=== PATIENT | female | born 1935 | race Caucasian/White ===

== ENCOUNTER 2020-04-03 18:04 | Emergency (ER) | payer MEDICARE, SELFPAY ==
--- NOTE | 2020-04-03 | ECG_ITS ---
Test Reason : HYPOKALEMIA Blood Pressure : / mmHG Vent. Rate : 086 BPM Atrial Rate : 101 BPM P-R Int : 000 ms QRS Dur : 080 ms QT Int : 390 ms P-R-T Axes : 000 016 -85 degrees QTc Int : 466 ms Atrial fibrillation with premature ventricular or aberrantly conducted complexes Nonspecific ST and T wave abnormality Abnormal ECG When compared with ECG of 03-AUG-2018 10:09, No significant changes seen Referred By: Generic ED Physician Electronically Signed By:NOEL APONTE
[2020-04-03 18:08] VITALS: BP 125/91; PULSE 77; RESP 16; TEMP 36.1; O2SAT 98; BMI 18.0
[2020-04-03 21:00] LABS: Basophils Absolute Auto 0.1 X10*3/uL (0.0-0.2); Basophils Percent Auto 0.9 % (0-2); Eosinophils Absolute Auto 0.3 X10*3/uL (0.0-0.4); Eosinophils Percent Auto 3.3 % (0-4); Hematocrit 36.9 % (37-47); Hemoglobin 12.2 g/dl (12.0-16.0); Imm Gran Abs Auto 0.02 X10*3/uL (0.00-0.03); Imm Gran Pct Auto 0.2 % (0.0-0.4); Lymphocytes Absolute Auto 2.7 X10*3/uL (1.2-4.9); Lymphocytes Percent Auto 29.2 % (20-40); MANUAL DIFF FLAG NO; Mean Corpuscular HGB Conc 33.1 g/dl (31.0-35.0); Mean Corpuscular Hemoglobin 29.2 pg (27.0-33.0); Mean Corpuscular Volume 88.3 fL (80-98); Mean Platelet Volume 8.8 fL (9.4-12.3); Monocytes Absolute Auto 0.9 X10*3/uL (0.1-1.2); Monocytes Percent Auto 9.4 % (2-11); Neutrophils Absolute Auto 5.4 X10*3/uL (2.0-8.3); Platelet Count 245 X10*3/uL (160-400); Red Blood Count 4.18 X10*6/uL (4.20-5.50); Red Cell Distribution Width 15.3 % (11.0-16.0); White Blood Count 9.4 X10*3/uL (4.8-10.8)
[2020-04-03 21:20] LABS: Anion Gap 15 (12-20); Blood Urea Nitrogen 17 mg/dL (9-16); Calcium 9.2 mg/dL (8.4-10.2); Carbon Dioxide 30 mmol/L (22-29); Chloride 97 mmol/L (96-108); Estimated Glomerular Filt Rate 39; Glucose Random 102 mg/dL (60-115); Potassium 3.1 mmol/l (3.3-5.1); Sodium 139 mmol/L (135-145)
[2020-04-03 23:18] VITALS: BP 142/63; PULSE 82; RESP 15; O2SAT 98
--- NOTE | 2020-04-03 23:52 | ED.RECABL ---
HPI - Recheck/Abnormal Lab/Rx General Chief Complaint: Recheck/Abnormal Lab/Rx Stated Complaint: abnormal labs Time Seen by Provider: 04/03/20 23:36 Source: patient Mode of arrival: ambulatory History of Present Illness HPI narrative: This is an 84-year-old female who presents to the emergency department at the request of her primary care provider for laboratory findings of a low potassium. Patient denies any current chest pain or palpitations, muscle cramping, shortness of breath, or difficulty with having a bowel movement. She states she is otherwise in her normal state health. Related Data Previous Rx's Medication Instructions Recorded midodrine 10 mg tablet 10 mg PO TID 90 Days #270 tab 01/24/20 potassium chloride 20 mEq/15 mL 20 meq PO DAILY #1200 ml 03/07/20 oral liquid diltiazem HCl 120 mg 120 mg PO DAILY 90 Days #90 cap 03/20/20 capsule,extended release 24 hr Allergies Allergy/AdvReac Type Severity Reaction Status Date / Time acetaminophen [Percocet] Allergy Unknown vomiting Verified 11/02/19 00:00 morphine [MORPHINE] Allergy Unknown NAUSEA & Unverified 12/22/19 14:43 VOMITING, vomiting oxycodone [From PERCODAN] AdvReac Unknown VOMITING Unverified 12/22/19 14:43 Percodan Allergy Unknown vomiting Uncoded 11/02/19 00:00 From PERCOCET AdvReac Unknown NAUSEA & Uncoded 12/22/19 14:43 VOMITING Review of Systems Review of Systems: Pertinent positives and negatives as stated in HPI 10 point review systems is otherwise negative. [facility] Past Medical History Source: nursing notes reviewed Medical History Arthritis Atrial fibrillation CHF (congestive heart failure) COPD (chronic obstructive pulmonary disease) Orthostatic hypotension dysautonomic syndrome Osteoporosis Social History Social History Alcohol intake: current Alcohol intake frequency: holidays/special occasions only Alcohol type: wine Smoking Status: Former smoker Use of substances other than those prescribed or required for medical reasons: No Advance Directives: No Advance Directives Information Provided: Yes Physical Exam Vital Signs: Vital Signs: Last Vital Signs Temp 96.9 F 04/03/20 18:08 Pulse 81 12/30/20 01:33 Resp 18 04/04/20 01:33 BP 127/91 H 04/04/20 01:33 Pulse Ox 96 04/04/20 01:33 Body Mass Index 18.0 VITAL SIGNS: Reviewed. GENERAL: Well developed, well nourished, in no acute distress. HEAD: Normocephalic/atraumatic, EYES: PERRLA, EOMI intact without pain, no nystagmus/pallor/icterus noted EARS: Ext canals without abnormality, TMs non-bulging and non-erythematous NOSE: Nares patent bilateral OROPHARYNX: no oral lesions noted, posterior pharynx clear NECK: Supple, no adenopathy LUNGS: Normal breath sounds. No adventitious sounds or accessory muscle use. SpO2<> CARDIOVASCULAR: Irregular rate and rhythm without noted murmurs, no JVD or lower extremity edema. ABDOMEN: Soft, non-tender, non-distended with bowel sounds. No rigidity. No guarding. No palpable masses or hernias noted NEUROLOGIC: Alert and oriented x 4. Course Course Course Narrative: This is an 84-year-old female with history and clinical presentation consistent with minimal hypokalemia despite being on potassium supplements. Review of all investigations negative for any acute findings to suggest etiology at this time. Magnesium was checked to ensure that potassium supplementation would be successful and found to be within normal limits. As the potassium here in this emergency department was 3.1 the decision was made to give patient of potassium chloride. She was then instructed to follow-up with her primary care provider for further management and repeat laboratory workup at their discretion. MDM - Recheck/Abnormal Lab/Rx Lab Data Result diagrams: 04/03/20 20:53 04/03/20 20:53 Labs: Lab Results 04/03/20 04/03/20 04/03/20 Range/Units 20:53 20:53 20:53 WBC 9.4 (4.8-10.8) X10*3/uL RBC 4.18 L (4.20-5.50) X10*6/uL Hgb 12.2 (12.0-16.0) g/dl Hct 36.9 L (37-47) % MCV 88.3 (80-98) fL MCH 29.2 (27.0-33.0) pg MCHC 33.1 (31.0-35.0) g/dl RDW 15.3 (11.0-16.0) % Plt Count 245 (160-400) X10*3/uL MPV 8.8 L (9.4-12.3) fL Immature Gran % (Auto) 0.2 (0.0-0.4) % Neut % (Auto) 57.0 (45-73) % Lymph % (Auto) 29.2 (20-40) % [place] % (Auto) 9.4 (2-11) % Eos % (Auto) 3.3 (0-4) % Baso % (Auto) 0.9 (0-2) % Lymph # (Auto) 2.7 (1.2-4.9) X10*3/uL [place] # (Auto) 0.9 (0.1-1.2) X10*3/uL Eos # (Auto) 0.3 (0.0-0.4) X10*3/uL Baso # (Auto) 0.1 (0.0-0.2) X10*3/uL Abs Immat Gran (auto) 0.02 (0.00-0.03) X10*3/uL Absolute Neuts (auto) 5.4 (2.0-8.3) X10*3/uL Absolute Nucleated RBC 0.000 (0.0-0.012) X10*3/uL Nucleated RBC % (auto) 0.0 (0.0-0.2) /100WBC Hold Blue Top SEE NOTE Sodium 139 (135-145) mmol/L Potassium 3.1 L (3.3-5.1) mmol/l Chloride 97 (96-108) mmol/L Carbon Dioxide 30 H (22-29) mmol/L Anion Gap 15 (12-20) BUN 17 H (9-16) mg/dL Creatinine 1.30 (0.5-1.4) mg/dL Estim Creat Clear Calc 23.0 Estimated GFR 39 Random Glucose 102 (60-115) mg/dL Calcium 9.2 (8.4-10.2) mg/dL Magnesium 1.6 (1.6-2.6) mg/dL Discharge Plan Discharge Clinical Impression: Hypokalemia Patient Disposition: Home, Self-Care Instructions: Hypokalemia (ED) Additional Instructions: Please resume all home medications as prescribed. Please follow-up with your primary care provider to repeat your lab work in the next 2-3 days and for further management of your low potassium. Prescriptions: No Action midodrine 10 mg tablet 10 mg PO TID 90 Days Qty: 270 RF: 1 potassium chloride 20 mEq/15 mL liquid 20 meq PO DAILY Qty: 1200 RF: 1 diltiazem HCl 120 mg capsule,extended release 24hr 120 mg PO DAILY 90 Days Qty: 90 RF: 1 Referrals: Michael Godinez MD [Primary Care Provider] - 2 days (Outpatient management of patient's mildly decreased potassium after receiving 40 mEq potassium chloride in the emergency department.)
[2020-04-04 00:35] LABS: Magnesium 1.6 mg/dL (1.6-2.6)
[2020-04-04 01:33] VITALS: BP 127/91; PULSE 81; RESP 18; O2SAT 96
[2020-04-04] MEDS: Potassium Chloride ER 20 MEQ TAB.ER.PRT 40 MEQ PO (01:47)
== END 2020-04-04 02:40 | disposition home or self-care (01) ==
PROVIDERS: Emergency Provider Student in an Organized Health Care Education/Training Program; PCP Internal Medicine
DX: E87.6 Hypokalemia (principal); R79.89 Other specified abnormal findings of blood chemistry; Z79.899 Other long term (current) drug therapy; Z87.891 Personal history of nicotine dependence
CPT/HCPCS: 36415; 80048; 83735; 85025; 93005; 99284

== ENCOUNTER → 2020-06-11 14:26 | Outpatient (BNVA) | payer MEDICARE, SELFPAY | PROVIDERS: PCP Internal Medicine; Visit Provider Internal Medicine Cardiovascular Disease | DX: Z13.89 Encounter for screening for other disorder (principal) | CPT/HCPCS: Q3014 ==

== ENCOUNTER 2020-06-14 11:55 | Inpatient (IN) | payer MEDICARE, SELFPAY ==
[2020-06-14] VITALS (11 sets, daily range): BP systolic 134–157; BP diastolic 73–89; PULSE 77–100; RESP 16–24; TEMP 36.4–37.3; O2SAT 90–98; BMI 17.6
--- NOTE | ~2020-06-14 | XR_ITS ---
EXAMINATION: XR CHEST CLINICAL INFORMATION: Shortness of breath COMPARISON: Chest radiographs 08/03/2018, 12/09/2017 TECHNIQUE: Upright AP and 2 lateral views of the chest are obtained for a total of 3 views. FINDINGS: There is accentuation of the interstitial markings again noted similar to prior exam with linear and irregular scarring central right apex. There is no lobar or segmental airspace consolidation or definite groundglass opacity. The heart is within limits of normal size. The vascularity is normal. There is blunting right costophrenic angle consistent with trace effusion. The hilar and mediastinal contours and bony structures are stable. XR/XR chest 1V IMPRESSION: Chronic interstitial lung disease with irregular stable scarring right apex. New trace effusion right base.
[2020-06-14 13:22] LABS: MANUAL DIFF FLAG NO
[2020-06-14 13:25] LABS: Basophils Absolute Auto 0.1 X10*3/uL (0.0-0.2); Basophils Percent Auto 0.7 % (0-2); Eosinophils Percent Auto 0.5 % (0-4); Hematocrit 39.5 % (37-47); Hemoglobin 12.8 g/dl (12.0-16.0); Imm Gran Abs Auto 0.03 X10*3/uL (0.00-0.03); Imm Gran Pct Auto 0.3 % (0.0-0.4); Lymphocytes Absolute Auto 1.9 X10*3/uL (1.2-4.9); Lymphocytes Percent Auto 21.1 % (20-40); Mean Corpuscular HGB Conc 32.4 g/dl (31.0-35.0); Mean Corpuscular Hemoglobin 28.3 pg (27.0-33.0); Mean Corpuscular Volume 87.2 fL (80-98); Mean Platelet Volume 9.5 fL (9.4-12.3); Monocytes Absolute Auto 0.7 X10*3/uL (0.1-1.2); Monocytes Percent Auto 7.8 % (2-11); Neutrophils Absolute Auto 6.2 X10*3/uL (2.0-8.3); Neutrophils Percent Auto 69.6 % (45-73); Platelet Count 248 X10*3/uL (160-400); Red Blood Count 4.53 X10*6/uL (4.20-5.50); Red Cell Distribution Width 17.2 % (11.0-16.0); White Blood Count 8.9 X10*3/uL (4.8-10.8)
[2020-06-14 13:47] LABS: Anion Gap 17 (12-20); Blood Urea Nitrogen 15 mg/dL (9-16); Calcium 9.6 mg/dL (8.4-10.2); Carbon Dioxide 24 mmol/L (22-29); Chloride 102 mmol/L (96-108); Creatinine Clr Calc Pharmacy 25.6; Estimated Glomerular Filt Rate 45; Glucose Random 99 mg/dL (60-115); Potassium 3.8 mmol/L (3.3-5.1); Sodium 139 mmol/L (135-145)
[2020-06-14 13:53] LABS: B Type Natriuretic Peptide 1927 pg/mL (<100)
--- NOTE | 2020-06-14 14:00 | ECG_ITS ---
Test Reason : SHORTNESS OF BREATH Blood Pressure : / mmHG Vent. Rate : 080 BPM Atrial Rate : 083 BPM P-R Int : 000 ms QRS Dur : 088 ms QT Int : 376 ms P-R-T Axes : 000 056 258 degrees QTc Int : 433 ms Atrial fibrillation Cannot rule out Anterior infarct , age undetermined Abnormal ECG When compared with ECG of 03-APR-2020 23:18, T wave inversion no longer evident in Anterior leads Referred By: Claire Shrestha Electronically Signed By:YOVANA GREENWOOD MD
[2020-06-14 14:07] LABS: INTERNATIONAL NORM RATIO 1.7 (0.9-1.1); Prothrombin Time 20.7 SEC (10.8-13.0)
[2020-06-14 14:09] LABS: Partial Thromboplastin Time 38.6 SEC (24.1-38.0)
--- NOTE | 2020-06-14 14:16 | ED_ITS ---
HPI - SOB/Dyspnea General Chief Complaint: Dyspnea Stated Complaint: SOB Time Seen by Provider: 06/14/20 13:54 Source: patient Mode of arrival: ambulatory History of Present Illness HPI Narrative: 84-year-old female with a past medical history of arthritis, AFib on Eliquis, CHF, COPD on chronic O2, orthostatic hypotension, osteoporosis, pr esenting to the ED complaining of worsening SOB times 3-4 days requiring more O2 at home at rest. Reports at baseline uses 3.5L NC & increases to 4L NC on exertion, but the past 2 days requiring 4L NC at rest. Also reports generalized fatigue/weakness and malaise. Denies fever, chills, new cough, chest pain, abdominal pain, nausea/vomiting, LE edema MD elicited complaint: shortness of breath Related Data Home Medications Medication Instructions Recorded Confirmed albuterol sulfate mg INHALATION Q6H PRN 06/11/20 06/11/20 apixaban 2.5 mg tablet 2.5 mg PO BID 06/11/20 06/11/20 fluticasone fur. 100 mcg-umeclid 1 ea INHALATION DAILY 06/11/20 06/11/20 62.5 mcg-vilant 25 mcg inhalat.powder furosemide 20 mg tablet 20 mg PO BID 06/11/20 06/11/20 levothyroxine 25 mcg tablet 25 mcg PO DAILY 06/11/20 06/11/20 pravastatin 20 mg tablet 10 mg PO BEDTIME 06/11/20 06/11/20 Previous Rx's Medication Instructions Recorded midodrine 10 mg tablet 10 mg PO TID 90 Days #270 tab 01/24/20 diltiazem HCl 120 mg 120 mg PO DAILY 90 Days #90 cap 03/20/20 capsule,extended release 24 hr potassium chloride 20 mEq 20 meq PO DAILY 30 Days #30 tab 05/04/20 tablet,extended release Allergies Allergy/AdvReac Type Severity Reaction Status Date / Time acetaminophen [Percocet] Allergy Unknown vomiting Verified 04/04/20 01:45 morphine [MORPHINE] Allergy Unknown NAUSEA & Verified 04/04/20 01:45 VOMITING, vomiting oxycodone [From PERCODAN] AdvReac Unknown VOMITING Verified 04/04/20 01:45 Percodan Allergy Unknown vomiting Uncoded 11/02/19 00:00 From PERCOCET AdvReac Unknown NAUSEA & Uncoded 12/22/19 14:43 VOMITING Review of Systems Review of Systems: Constitutional: No Fever, No Chills,+ Fatigue, + Malaise Cardiovascular: No Chest Pain, + SOB, + Dyspnea on Exertion, + Orthopnea, No Edema, No Palpitations Respiratory: +chronic Cough, No Sputum, +Wheezing, +Dyspnea Gastrointestinal: No Nausea, No Vomiting, No Abdominal pain Genitourinary: No Dysuria, No Urinary Frequency, No Hematuria Musculoskeletal: No joint pain, No Myalgias, No Joint Swelling Skin: No Skin Lesions, No rash Neuro: +Weakness, No Dizziness, No Headache Yes all other systems are reviewed and are negative [facility] Past Medical History Attestation statement: The following information was validated with the patient. Medical History (Updated 06/14/20 @ 14:39 by PEYTON Heath) Arthritis Atrial fibrillation CHF (congestive heart failure) COPD (chronic obstructive pulmonary disease) Orthostatic hypotension dysautonomic syndrome Osteoporosis Social History Social History Alcohol intake: former Smoking Status: Former smoker Smoked in Last 30 Days: No Use of substances other than those prescribed or required for medical reasons: No Advance Directives: Yes Advance Directives Information Provided: Yes Advance Directives on File: No Physical Exam Vital Signs: Vital Signs: Last Vital Signs Temp 98.2 F 06/14/20 13:35 Pulse 84 06/14/20 14:26 Resp 16 06/14/20 13:35 BP 134/80 06/14/20 14:26 Pulse Ox 98 06/14/20 13:35 Body Mass Index 17.6 Const: General: cooperative, healthy appearing and comfortable Orientation/consciousness: patient oriented x3 Limitations: no limitations HENMT: Head: Yes normal to inspection Ears: hearing grossly normal bilatera lly General nose exam: Normal external nose present Face and sinus: Yes normal facial exam Eyes: General: appearance normal, both eyes and all related structures EOM: EOMs intact bilaterally Neck: Neck: Yes normal visual inspection and Yes no meningeal signs Resp: Effort & Inspection: normal respiratory effort Auscultation: clear to auscultation bilaterally, no rales and no wheezes Cardio: Rate: regular rate Heart sounds: S1 normal heart sound present and S2 normal heart sound present GI: Inspection: Yes normal to inspection Palpation (GI): Soft to palpation, nontender, no guarding and not rigid Skin: Rashes: no rashes Wounds: no wounds Neuro: General: patient oriented x3, tone normal, moves all extremities and no meningeal signs Gait exam (Neuro): Normal gait present Extrem: General: Yes normal to inspection and Yes no pedal edema Course Course Course Narrative: -No leukocytosis. Troponin noted to be 43.1 and BNP 1927 > will obtain 3 hour repeat XR chest 1V IMPRESSION: Chronic interstitial lung disease with irregular stable scarring right apex. New trace effusion right base. >> 40 any Lasix ordered. Plan to admit for further management -patient unable to perform orthostatic vital signs due to dizziness. Has history of orthostasis on Midodrine MDM - SOB/Dyspnea MDM Narrative Medical decision making narrative: 84-year-old female with a past medical history of arthritis, AFib on Eliquis, CHF, COPD on chronic O2, orthostatic hypotension, osteoporosis, presenting to the ED complaining of worsening SOB times 3-4 days requiring more O2 at home at rest. On exam sating 98% on 4.5L NC, lungs CTA, no LE edema. Concern for ACS vs CHF vs metabolic abnormalities. Lower concern for COPD without wheezing on exam. Unlikely pneumonia/PE. Plan: EKG, labs, CXR, COVID-19 testing, re-evaluate Differential Diagnosis Differential diagnosis: Likely acute exacerbation of chronic obstructive airways disease, congestive heart failure, pneumonia, pleural effusion and anemia; Unlikely pulmonary embolism Medical Records Attestation: I reviewed the patient's medical records. Lab Data Attestation: I reviewed the patient's lab results. Result diagrams: 06/14/20 13:04 06/14/20 13:04 Labs: Lab Results 06/14/20 06/14/20 06/14/20 Range/Units 13:04 13:04 13:04 WBC 8.9 (4.8-10.8) X10*3/uL RBC 4.53 (4.20-5.50) X10*6/uL Hgb 12.8 (12.0-16.0) g/dl Hct 39.5 (37-47) % MCV 87.2 (80-98) fL MCH 28.3 (27.0-33.0) pg MCHC 32.4 (31.0-35.0) g/dl RDW 17.2 H (11.0-16.0) % Plt Count 248 (160-400) X10*3/uL MPV 9.5 (9.4-12.3) fL Immature Gran % (Auto) 0.3 (0.0-0.4) % Neut % (Auto) 69.6 (45-73) % Lymph % (Auto) 21.1 (20-40) % [place] % (Auto) 7.8 (2-11) % Eos % (Auto) 0.5 (0-4) % Baso % (Auto) 0.7 (0-2) % Lymph # (Auto) 1.9 (1.2-4.9) X10*3/uL [place] # (Auto) 0.7 (0.1-1.2) X10*3/uL Eos # (Auto) 0.0 (0.0-0.4) X10*3/uL Baso # (Auto) 0.1 (0.0-0.2) X10*3/uL Abs Immat Gran (auto) 0.03 (0.00-0.03) X10*3/uL Absolute Neuts (auto) 6.2 (2.0-8.3) X10*3/uL Absolute Nucleated RBC 0.000 (0.0-0.012) X10*3/uL Nucleated RBC % (auto) 0.0 (0.0-0.2) /100WBC PT 20.7 H (10.8-13.0) SEC INR 1.7 H (0.9-1.1) APTT 38.6 H (24.1-38.0) SEC Hold Blue Top SEE NOTE Sodium 139 (135-145) mmol/L Potassium 3.8 (3.3-5.1) mmol/L Chloride 102 (96-108) mmol/L Carbon Dioxide 24 (22-29) mmol/L Anion Gap 17 (12-20) BUN 15 (9-16) mg/dL Creatinine 1.15 (0.5-1.4) mg/dL Estim Creat Clear Calc 25.6 Estimated GFR 45 Random Glucose 99 (60-115) mg/dL Calcium 9.6 (8.4-10.2) mg/dL Magnesium 1.9 (1.6-2.6) mg/dL Total Bilirubin 1.3 H (0.0-1.0) mg/dL Direct Bilirubin 0.7 H (0.0-0.5) mg/dL AST 38 H (5-31) U/L ALT 29 (0-31) U/L Alkaline Phosphatase 148 H (39-117) U/L Troponin I High Sens (<3.5-17.0) ng/L B-Natriuretic Peptide (<100) pg/mL Total Protein 7.3 (6.5-8.0) g/dL Albumin 4.5 (3.5-5.0) g/dL 06/14/20 Range/Units 13:04 WBC (4.8-10.8) X10*3/uL RBC (4.20-5.50) X10*6/uL Hgb (12.0-16.0) g/dl Hct (37-47) % MCV (80-98) fL MCH (27.0-33.0) pg MCHC (31.0-35.0) g/dl RDW (11.0-16.0) % Plt Count (160-400) X10*3/uL MPV (9.4-12.3) fL Immature Gran % (Auto) (0.0-0.4) % Neut % (Auto) (45-73) % Lymph % (Auto) (20-40) % [place] % (Auto) (2-11) % Eos % (Auto) (0-4) % Baso % (Auto) (0-2) % Lymph # (Auto) (1.2-4.9) X10*3/uL [place] # (Auto) (0.1-1.2) X10*3/uL Eos # (Auto) (0.0-0.4) X10*3/uL Baso # (Auto) (0.0-0.2) X10*3/uL Abs Immat Gran (auto) (0.00-0.03) X10*3/uL Absolute Neuts (auto) (2.0-8.3) X10*3/uL Absolute Nucleated RBC (0.0-0.012) X10*3/uL Nucleated RBC % (auto) (0.0-0.2) /100WBC PT (10.8-13.0) SEC INR (0.9-1.1) APTT (24.1-38.0) SEC Hold Blue Top Sodium (135-145) mmol/L Potassium (3.3-5.1) mmol/L Chloride (96-108) mmol/L Carbon Dioxide (22-29) mmol/L Anion Gap (12-20) BUN (9-16) mg/dL Creatinine (0.5-1.4) mg/dL Estim Creat Clear Calc Estimated GFR Random Glucose (60-115) mg/dL Calcium (8.4-10.2) mg/dL Magnesium (1.6-2.6) mg/dL Total Bilirubin (0.0-1.0) mg/dL Direct Bilirubin (0.0-0.5) mg/dL AST (5-31) U/L ALT (0-31) U/L Alkaline Phosphatase (39-117) U/L Troponin I High Sens 43.1 H (<3.5-17.0) ng/L B-Natriuretic Peptide 1927 H (<100) pg/mL Total Protein (6.5-8.0) g/dL Albumin (3.5-5.0) g/dL Discharge Plan Discharge Clinical Impression: CHF (congestive heart failure) Patient Disposition: Admitted As Inpatient
[2020-06-14 14:18] LABS: Alanine Aminotransferase 29 U/L (0-31); Albumin Level 4.5 g/dL (3.5-5.0); Alkaline Phosphatase 148 U/L (39-117); Aspartate Amino Transferase 38 U/L (5-31); Bilirubin Direct 0.7 mg/dL (0.0-0.5); Bilirubin Total 1.3 mg/dL (0.0-1.0); Magnesium 1.9 mg/dL (1.6-2.6); Total Protein 7.3 g/dL (6.5-8.0)
--- NOTE | 2020-06-14 14:29 | PC.NURSE ---
pt presents to ED with increasing SOB for 3-4 days. pt alert and oriented x3. lung sounds clear bilaterally in all raphael, respiratory effort is non-labored at this time on 3L nasal cannula, pt denies chest pain and denies pain with inspiration. heart sounds and rate normal. bowel sounds active x4, abdomen is soft, non-tender. no bruising or discoloration noted. no abdominal distension noted. legs are normal in color bilaterally, no edema noted in lower extremities, pedal pulses both present. pt currently on bedside heart monitor and 3L nasal cannula. PA at bedside during assessment, pt aware of plan of care for admission.
[2020-06-14 14:31] LABS: Troponin-I High Sensitivity 43.1 ng/L (<3.5-17.0)
[2020-06-14] MEDS: Furosemide 40 MG/4 ML VIAL IVPUSH (14:46)
--- NOTE | 2020-06-14 14:46 | PC.NURSE ---
dr. ernesto mccormick at bedside, pt/family aware of plan of care.
--- NOTE | 2020-06-14 15:11 | P.HPHOSP_ITS ---
History of Present Illness Date of Service: 06/14/20 Chief Complaint: shortness of breath This is a 84-year-old female with a past medical history of chronic respiratory failure on 3-4 L of oxygen at home, orthostatic hypotension, atrial fibrillation on Eliquis, COPD, CHF who presents to the hospital with progressive shortness of breath over the last 3-4 days. She reports that she generally is short of breath all the time but it became to the point where she could not even take a few steps and so she presented to the hospital. She reports chronic orthopnea symptoms and sleeps with 3-4 pillows. She does endorse a several lb weight gain as well. She denies any lower extremity edema. She reports a chronic cough due to her COPD which is unchanged. She denies any fevers. She does endorse that she has been vaccinated with the 1st dose of COVID-19. Patients daughter is bedside who corroborates the story. In the emergency room she was noted to be in respiratory distress. Her chest x- ray showed some interstitial findings. BNP was elevated greater than 1900. She was given a dose of IV Lasix and admission was requested for congestive heart failure exacerbation. Review of Systems Review of Systems: General - denies fevers or chills, denies weakness or fatigue HEENT -denies blurred vision, denies headache, denies sore throat Cardiovascular - denies chest pain or palpitations, denies edema; +orthopnea; Respiratory - +SOB, +orthopnea; +chronic cough Gastrointestinal - denies abdominal pain, nausea, vomiting, diarrhea - denies flank pain, denies dysuria, denies frequency or urgency Musculoskeletal - denies back pain, denies hip pain, denies knee pain, denies shoulder pain Neurological - denies any focal weakness or numbness Skin, denies any bruising or redness Psychiatric - denies any suicidal ideation, hallucinations, homicidal ideation Endocrinology - denies intolerance to hot / cold temperatures [facility] Medical History (Updated 06/14/20 @ 15:18 by Daniel Sue MD) Arthritis Atrial fibrillation CHF (congestive heart failure) Chronic respiratory failure with hypoxia COPD (chronic obstructive pulmonary disease) Orthostatic hypotension dysautonomic syndrome Osteoporosis Social History Alcohol intake: former Smoking Status: Former smoker Smoked in Last 30 Days: No Use of substances other than those prescribed or required for medical reasons: No Advance Directives: Yes Advance Directives Information Provided: Yes Advance Directives on File: Yes Advance Directives Date on File: 06/14/20 Meds Allergies Allergy/AdvReac Type Severity Reaction Status Date / Time acetaminophen [Percocet] Allergy Unknown vomiting Verified 04/04/20 01:45 morphine [MORPHINE] Allergy Unknown NAUSEA & Verified 04/04/20 01:45 VOMITING, vomiting oxycodone [From PERCODAN] AdvReac Unknown VOMITING Verified 04/04/20 01:45 Percodan Allergy Unknown vomiting Uncoded 11/02/19 00:00 From PERCOCET AdvReac Unknown NAUSEA & Uncoded 12/22/19 14:43 VOMITING Active Medications: Current Medications Generic Name Dose Route Start Last Admin Trade Name Freq PRN Reason Stop Dose Admin Pharmacy Consult 1 each 06/14/20 14:00 Consult Rx Perform Med Rec MISCELLANE ONCE PRN Consult order Home Medications Medication Instructions Recorded Confirmed Last Taken Type albuterol sulfate mg INHALATION Q6H PRN 06/11/20 06/11/20 Unknown History apixaban 2.5 mg tablet 2.5 mg PO BID 06/11/20 06/11/20 Unknown History fluticasone fur. 100 mcg-umeclid 1 ea INHALATION DAILY 06/11/20 06/11/20 Unknown History 62.5 mcg-vilant 25 mcg inhalat.powder furosemide 20 mg tablet 20 mg PO BID 06/11/20 06/11/20 Unknown History levothyroxine 25 mcg tablet 25 mcg PO DAILY 06/11/20 06/11/20 Unknown History pravastatin 20 mg tablet 10 mg PO BEDTIME 06/11/20 06/11/20 Unknown History albuterol sulfate 1 inh INHALATION QID PRN 06/14/20 06/14/20 Unknown History loratadine 10 mg PO DAILY PRN 06/14/20 06/14/20 Unknown History multivitamin 1 tab PO DAILY 06/14/20 06/14/20 06/13/20 History vitamin B complex 1 tab PO DAILY 06/14/20 06/14/20 06/14/20 History Physical Exam Vital Signs and Narrative: Vital Signs: Last Vital Signs Temp 98.2 F 06/14/20 13:35 Pulse 85 06/14/20 14:57 Resp 17 06/14/20 14:57 BP 155/89 H 06/14/20 14:57 Pulse Ox 95 06/14/20 14:57 Body Mass Index 17.6 Const: Other: Constitutional - Awake and Alert, No apparent distress Eyes - PERRLA, EOMI Cardiovascular - IRR; no edema Respiratory - diminshed breath sounds, unable to lay supine Gastrointestinal - NT / ND; +BS; No rebound or guarding - No CVA tenderness Extremities - no calf tenderness bilaterally, no swelling Musculoskeletal - Normal inspection, normal ROM Skin - Warm/Dry Neurological - Alert & oriented x3, No focal deficit Psychological - Appropriate affect Results Labs CBC and Chem 7: 06/14/20 13:04 06/14/20 13:04 Labs: Laboratory Results - last 24 hr 06/14/20 06/14/20 06/14/20 13:04 13:04 13:04 MCV 87.2 MCH 28.3 MCHC 32.4 RDW 17.2 H Plt Count 248 MPV 9.5 Immature Gran % (Auto) 0.3 Neut % (Auto) 69.6 Lymph % (Auto) 21.1 [place] % (Auto) 7.8 Eos % (Auto) 0.5 Baso % (Auto) 0.7 Lymph # (Auto) 1.9 [place] # (Auto) 0.7 Eos # (Auto) 0.0 Baso # (Auto) 0.1 Abs Immat Gran (auto) 0.03 Absolute Neuts (auto) 6.2 Absolute Nucleated RBC 0.000 Nucleated RBC % (auto) 0.0 PT 20.7 H INR 1.7 H APTT 38.6 H Hold Blue Top SEE NOTE Anion Gap 17 Estim Creat Clear Calc 25.6 Estimated GFR 45 Random Glucose 99 Calcium 9.6 Magnesium 1.9 Total Bilirubin 1.3 H Direct Bilirubin 0.7 H AST 38 H ALT 29 Alkaline Phosphatase 148 H Troponin I High Sens B-Natriuretic Peptide Total Protein 7.3 Albumin 4.5 06/14/20 13:04 MCV MCH MCHC RDW Plt Count MPV Immature Gran % (Auto) Neut % (Auto) Lymph % (Auto) [place] % (Auto) Eos % (Auto) Baso % (Auto) Lymph # (Auto) [place] # (Auto) Eos # (Auto) Baso # (Auto) Abs Immat Gran (auto) Absolute Neuts (auto) Absolute Nucleated RBC Nucleated RBC % (auto) PT INR APTT Hold Blue Top Anion Gap Estim Creat Clear Calc Estimated GFR Random Glucose Calcium Magnesium Total Bilirubin Direct Bilirubin AST ALT Alkaline Phosphatase Troponin I High Sens 43.1 H B-Natriuretic Peptide 1927 H Total Protein Albumin Imaging Radiologist's Impressions: Impressions Chest X-Ray 06/14/20 12:46 IMPRESSION: Chronic interstitial lung disease with irregular stable scarring right apex. New trace effusion right base. Assessment and Plan (1) CHF (congestive heart failure): Status: Acute This is an 84 yo F with multiple medical problems including Chronic Respiratory Failure on 3-4L at home, COPD, CHF, Orthostatic Hypotension, A. Fib on Eliquis who presents to the hospital with worsening progressive dyspnea, initially on exertion but eventually at rest. Her work up is consistant with CHF exacerbation and she will be admitted for fruther treatment. 1. Acute CHF LVEF normal last echo Sep 2019; mild RV dysfunction seen on that echo Given IV lasix 40mg just now in the ED, will dose further lasix depending on re sponse; will need to be judicious with diuretics given her orthostasis history I/O 2. Chronic Resp failure 2a. Chronic COPD continue inhalers continue o2 3. Orthostatic hypotension continue midodrine 4. Elevated LFTs ? from hepatic congestion will rehceck tomorrow after diuresis no RUQ pain to suggest primary Full Code (patient has a MOLST from at home, but at this time she is unable to decide and so will be presumed full code) Daughter is HCP
[2020-06-14 15:45] LABS: Glucose Urine UA NEG (NEG); Leukocyte Esterase Urine NEG (NEG); Nitrite Urine NEG (NEG); Urine Blood TRACE (NEG); Urine Ketones NEG (NEG); Urine Protein 2+ MG/DL (NEG-TRACE)
[2020-06-14 15:48] LABS: COVID-19 Test Negative (Negative); IDNOW Serial# 9DD0AD1C
[2020-06-14 15:51] LABS: Appearance Urine CLEAR; Color Urine YELLOW
[2020-06-14 16:11] LABS: Bacteria Urine 4+ /LPF; Renal Epithelial Cells Urine 1+ /LPF; UACC CULT YES
--- NOTE | 2020-06-14 16:19 | PC.NURSE ---
call to [facility], awaiting call back to nurse to nurse
[2020-06-14 16:40] LABS: Troponin-I High Sensitivity 45.3 ng/L (<3.5-17.0)
[2020-06-14] MEDS: 0.9 % Sodium Chloride Flush 3 ML SYRINGE IVFLUSH ×2 (19:16→23:53)
[2020-06-14] MEDS: Apixaban 2.5 MG TABLET PO (20:50)
[2020-06-14] MEDS: Pravastatin Sodium 10 MG TABLET PO (20:50)
[2020-06-15] VITALS (11 sets, daily range): BP systolic 111–137; BP diastolic 61–86; PULSE 71–98; RESP 18–20; TEMP 36.3–37.1; O2SAT 91–98; BMI 17.6
[2020-06-15 06:34] LABS: MANUAL DIFF FLAG NO
[2020-06-15 06:49] LABS: Basophils Absolute Auto 0.1 X10*3/uL (0.0-0.2); Basophils Percent Auto 0.7 % (0-2); Eosinophils Absolute Auto 0.1 X10*3/uL (0.0-0.4); Eosinophils Percent Auto 1.1 % (0-4); Hematocrit 42.6 % (37-47); Hemoglobin 13.7 g/dl (12.0-16.0); Imm Gran Abs Auto 0.02 X10*3/uL (0.00-0.03); Imm Gran Pct Auto 0.3 % (0.0-0.4); Lymphocytes Absolute Auto 2.2 X10*3/uL (1.2-4.9); Mean Corpuscular HGB Conc 32.2 g/dl (31.0-35.0); Mean Corpuscular Hemoglobin 27.9 pg (27.0-33.0); Mean Corpuscular Volume 86.8 fL (80-98); Monocytes Absolute Auto 0.6 X10*3/uL (0.1-1.2); Monocytes Percent Auto 8.2 % (2-11); Neutrophils Absolute Auto 4.5 X10*3/uL (2.0-8.3); Neutrophils Percent Auto 60.7 % (45-73); Platelet Count 272 X10*3/uL (160-400); Red Blood Count 4.91 X10*6/uL (4.20-5.50); Red Cell Distribution Width 17.3 % (11.0-16.0); White Blood Count 7.4 X10*3/uL (4.8-10.8)
[2020-06-15 07:10] LABS: Anion Gap 18 (12-20); Blood Urea Nitrogen 14 mg/dL (9-16); Calcium 9.8 mg/dL (8.4-10.2); Carbon Dioxide 31 mmol/L (22-29); Chloride 96 mmol/L (96-108); Creatinine Clr Calc Pharmacy 25.6; Estimated Glomerular Filt Rate 45; Glucose Random 83 mg/dL (60-115); Potassium 3.1 mmol/L (3.3-5.1); Sodium 142 mmol/L (135-145)
[2020-06-15 08:03] LABS: Alanine Aminotransferase 26 U/L (0-31); Albumin Level 4.8 g/dL (3.5-5.0); Alkaline Phosphatase 153 U/L (39-117); Aspartate Amino Transferase 39 U/L (5-31); Bilirubin Direct 0.9 mg/dL (0.0-0.5); Bilirubin Total 1.6 mg/dL (0.0-1.0); Total Protein 7.7 g/dL (6.5-8.0)
[2020-06-15] MEDS: Midodrine HCl 10 MG TABLET PO ×3 (08:25→21:07)
[2020-06-15] MEDS: 0.9 % Sodium Chloride Flush 3 ML SYRINGE IVFLUSH ×3 (08:26→21:07)
[2020-06-15] MEDS: dilTIAZem HCL CD 120 MG CAP.ER.DEG PO (08:26)
[2020-06-15] MEDS: Levothyroxine Sodium 25 MCG TABLET PO (08:26)
[2020-06-15] MEDS: Apixaban 2.5 MG TABLET PO ×2 (08:26→21:07)
[2020-06-15] MEDS: Potassium Chloride ER 20 MEQ TAB.ER.PRT PO (08:58)
[2020-06-15] MEDS: Furosemide 20 MG TABLET PO (08:58)
[2020-06-15] MEDS: Multivitamin TABLET 1 TAB PO (08:59)
--- NOTE | 2020-06-15 12:21 | PM.CNCAR ---
History of Present Illness History of Present Illness Date of Service: 06/15/20 Requesting physician: Caryl Renee Chief complaint: CHF Narrative: Pleasant 84-year-old female who is a patient of Dr. Nicole history of diastolic heart failure, chronic atrial fibrillation for which she has been on diltiazem and Eliquis and orthostatic hypertension for which she has been on midodrine. She is presenting with shortness of breath which started 3 days ago. She said she was unable to walk short distances. She has advanced lung disease and is on oxygen all the time. With these symptoms she presented to [facility] and her chest x-ray showed interstitial changes and BNP was elevated. She was given IV Lasix and admitted for further care. She is saying she is still short of breath. She is not back to his baseline. She said she was wheezing at home. She denies any fevers or chills. No chest discomfort. [facility] Past Medical History Medical History (Updated 06/14/20 @ 15:18 by Daniel Sue MD) Arthritis Atrial fibrillation CHF (congestive heart failure) Chronic respiratory failure with hypoxia COPD (chronic obstructive pulmonary disease) Orthostatic hypotension dysautonomic syndrome Osteoporosis Social History Social History Household Members: None Housing: House Do you presently have visiting nurse or other home services: No Alcohol intake: former Smoking Status: Former smoker Smoked in Last 30 Days: No Use of substances other than those prescribed or required for medical reasons: No Currently Displaying Signs/Symptoms of Drug Intoxication Withdrawal: No Have you been hit, kicked, punched, or otherwise hurt by someone within the past year? If so, by whom?: No Do you feel safe in your current relationship?: No Current Relationship Is there a partner from a previous relationship who is making you feel unsafe now?: No Are you made to feel afraid or neglected: No Advance Directives: Yes Advance Directives Information Provided: Yes Advance Directives on File: Yes Advance Directives Date on File: 06/14/20 Do you have thoughts of harming others: None Do you have a plan to hurt others: No Plan Recently lost weight without trying: Yes Meds Allergies Allergy/AdvReac Type Severity Reaction Status Date / Time acetaminophen [Percocet] Allergy Unknown vomiting Verified 04/04/20 01:45 morphine [MORPHINE] Allergy Unknown NAUSEA & Verified 04/04/20 01:45 VOMITING, vomiting oxycodone [From PERCODAN] AdvReac Unknown VOMITING Verified 04/04/20 01:45 Percodan Allergy Unknown vomiting Uncoded 11/02/19 00:00 From PERCOCET AdvReac Unknown NAUSEA & Uncoded 12/22/19 14:43 VOMITING Active Medications: Current Medications Generic Name Dose Route Start Last Admin Trade Name Freq PRN Reason Stop Dose Admin Albuterol Sulfate 2.5 mg 06/14/20 17:39 Albuterol Sulfate (0.083%) 2.5 Mg/3 Ml Vial.Neb INHALE Q6H PRN wheezing Albuterol Sulfate 1 puff 06/15/20 08:24 Albuterol Sulfate 90 Mcg 8 Gm Inhaler INHALE QID PRN Shortness Of Breath Apixaban 2.5 mg 06/14/20 21:00 06/15/20 08:26 Apixaban 2.5 Mg Tablet PO 2.5 mg BID TAMMY Administration Diltiazem HCl 120 mg 06/15/20 09:00 06/15/20 08:26 Diltiazem Hcl Cd 120 Mg Cap.Er.Deg PO 120 mg DAILY TAMMY Administration Protocol Furosemide 20 mg 06/15/20 09:00 06/15/20 08:58 Furosemide 20 Mg Tablet PO 20 mg DAILY TAMMY Administration Protocol Levothyroxine Sodium 25 mcg 06/15/20 09:00 06/15/20 08:26 Levothyroxine Sodium 25 Mcg Tablet PO 25 mcg DAILY TAMMY Administration Loratadine 10 mg 06/15/20 08:24 Loratadine 10 Mg Tablet PO DAILY PRN Allergy Symptoms Midodrine 10 mg 06/14/20 21:00 06/15/20 08:25 Midodrine Hcl 10 Mg Tablet PO 10 mg TID TAMMY Administration Multivitamins 1 tab 06/15/20 09:00 06/15/20 08:58 B-Complex With Vitamin C Tablet PO 1 tab DAILY TAMMY Administration Multivitamins/Vitamin C 1 tab 06/15/20 09:00 06/15/20 08:59 Multivitamin Tablet PO 1 tab DAILY TAMMY Administration Ondansetron HCl 4 mg 06/14/20 17:39 Ondansetron Hcl 4 Mg/2 Ml Vial IVPUSH Q8H PRN Nausea and Vomiting Pharmacy Consult 1 each 06/14/20 14:00 Consult Rx Perform Med Rec MISCELLANE ONCE PRN Consult order Potassium Chloride 20 meq 06/15/20 09:00 06/15/20 08:58 Potassium Chloride Er 20 Meq Tab.Er.Prt PO 20 meq DAILY TAMMY Administration Pravastatin Sodium 10 mg 06/14/20 21:00 06/14/20 20:50 Pravastatin Sodium 10 Mg Tablet PO 10 mg BEDTIME TAMMY Administration Sodium Chloride 3 ml 06/14/20 17:39 06/15/20 08:26 0.9 % Sodium Chloride Flush 3 Ml Syringe IVFLUSH 3 ml QSHIFT TAMMY Administration Home Medications Medication Instructions Recorded Confirmed Last Taken Type albuterol sulfate 2.5 mg INHALATION Q6H PRN 06/11/20 06/14/20 Unknown History apixaban 2.5 mg tablet 2.5 mg PO BID 06/11/20 06/14/20 06/14/20 History fluticasone fur. 100 mcg-umeclid 1 ea INHALATION DAILY 06/11/20 06/14/20 Unknown History 62.5 mcg-vilant 25 mcg inhalat.powder furosemide 20 mg tablet 20 mg PO DAILY 06/11/20 06/14/20 06/13/20 History levothyroxine 25 mcg tablet 25 mcg PO DAILY 06/11/20 06/14/20 06/13/20 History pravastatin 20 mg tablet 10 mg PO BEDTIME 06/11/20 06/14/20 06/13/20 History albuterol sulfate 1 inh INHALATION QID PRN 06/14/20 06/14/20 Unknown History loratadine 10 mg PO DAILY PRN 06/14/20 06/14/20 Unknown History multivitamin 1 tab PO DAILY 06/14/20 06/14/20 06/13/20 History vitamin B complex 1 tab PO DAILY 06/14/20 06/14/20 06/14/20 History Physical Exam Vital Signs: Vital Signs: Last Vital Signs Temp 97.5 F 06/15/20 08:00 Pulse 98 06/15/20 08:26 Resp 18 06/15/20 08:00 BP 113/75 06/15/20 08:26 Pulse Ox 92 06/15/20 08:00 Body Mass Index 17.6 GENERAL APPEARANCE: in no acute distress, well developed, well nourished. HEENT: unremarkable. HEAD: normocephalic, atraumatic. NECK/THYROID: Left carotid bruit present, no jugular venous distention. SKIN: no suspicious lesions, warm and dry. HEART: no murmurs, irregular rate and rhythm, S1, S2 normal. LUNGS: clear to auscultation bilaterally. ABDOMEN: normal, bowel sounds present, soft, nontender, nondistended. EXTREMITIES: no clubbing, cyanosis, or edema. PERIPHERAL PULSES: equal. NEUROLOGIC: nonfocal, alert and oriented. PSYCH: mood/affect full range. Results Labs and Meds Result diagrams: 06/15/20 05:42 06/15/20 05:42 Lab results: Laboratory Results - last 24 hr 06/14/20 06/14/20 06/14/20 13:04 13:04 13:04 WBC 8.9 RBC 4.53 Hgb 12.8 Hct 39.5 MCV 87.2 MCH 28.3 MCHC 32.4 RDW 17.2 H Plt Count 248 MPV 9.5 Immature Gran % (Auto) 0.3 Neut % (Auto) 69.6 Lymph % (Auto) 21.1 Sequoyah % (Auto) 7.8 Eos % (Auto) 0.5 Baso % (Auto) 0.7 Lymph # (Auto) 1.9 Sequ[place]ah # (Auto) 0.7 Eos # (Auto) 0.0 Baso # (Auto) 0.1 Abs Immat Gran (auto) 0.03 Absolute Neuts (auto) 6.2 Absolute Nucleated RBC 0.000 Nucleated RBC % (auto) 0.0 PT 20.7 H INR 1.7 H APTT 38.6 H Hold Blue Top SEE NOTE Sodium 139 Potassium 3.8 Chloride 102 Carbon Dioxide 24 Anion Gap 17 BUN 15 Creatinine 1.15 Estim Creat Clear Calc 25.6 Estimated GFR 45 Random Glucose 99 Calcium 9.6 Magnesium 1.9 Total Bilirubin 1.3 H Direct Bilirubin 0.7 H AST 38 H ALT 29 Alkaline Phosphatase 148 H Troponin I High Sens B-Natriuretic Peptide Total Protein 7.3 Albumin 4.5 Urine Color Urine Appearance Urine pH Ur Specific Jackson Urine Protein Urine Glucose (UA) Urine Ketones Urine Blood Urine Nitrite Ur Leukocyte Esterase Urine RBC Urine WBC Ur Squamous Epith Cells Ur Renal Epithelial Cell Urine Bacteria COVID-19 (MARI) COVID-19 Clin Com 06/14/20 06/14/2021 13:04 15:11 15:26 WBC RBC Hgb Hct MCV MCH MCHC RDW Plt Count MPV Immature Gran % (Auto) Neut % (Auto) Lymph % (Auto) [place] % (Auto) Eos % (Auto) Baso % (Auto) Lymph # (Auto) [place] # (Auto) Eos # (Auto) Baso # (Auto) Abs Immat Gran (auto) Absolute Neuts (auto) Absolute Nucleated RBC Nucleated RBC % (auto) PT INR APTT Hold Blue Top Sodium Potassium Chloride Carbon Dioxide Anion Gap BUN Creatinine Estim Creat Clear Calc Estimated GFR Random Glucose Calcium Magnesium Total Bilirubin Direct Bilirubin AST ALT Alkaline Phosphatase Troponin I High Sens 43.1 H B-Natriuretic Peptide 1927 H Total Protein Albumin Urine Color YELLOW Urine Appearance CLEAR Urine pH 7.0 Ur Specific Jackson 1.020 Urine Protein 2+ H Urine Glucose (UA) NEG Urine Ketones NEG Urine Blood TRACE Urine Nitrite NEG Ur Leukocyte Esterase NEG Urine RBC 1-4 Urine WBC 10-14 H Ur Squamous Epith Cells NONE Ur Renal Epithelial Cell 1+ Urine Bacteria 4+ COVID-19 (MARI) Negative COVID-19 Clin Com See Note 06/14/20 06/15/20 06/15/20 15:53 05:42 05:42 WBC 7.4 RBC 4.91 Hgb 13.7 Hct 42.6 MCV 86.8 MCH 27.9 MCHC 32.2 RDW 17.3 H Plt Count 272 MPV 10.0 Immature Gran % (Auto) 0.3 Neut % (Auto) 60.7 Lymph % (Auto) 29.0 Sequoyah % (Auto) 8.2 Eos % (Auto) 1.1 Baso % (Auto) 0.7 Lymph # (Auto) 2.2 Sequ[place]ah # (Auto) 0.6 Eos # (Auto) 0.1 Baso # (Auto) 0.1 Abs Immat Gran (auto) 0.02 Absolute Neuts (auto) 4.5 Absolute Nucleated RBC 0.000 Nucleated RBC % (auto) 0.0 PT INR APTT Hold Blue Top Sodium 142 Potassium 3.1 L Chloride 96 Carbon Dioxide 31 H Anion Gap 18 BUN 14 Creatinine 1.15 Estim Creat Clear Calc 25.6 Estimated GFR 45 Random Glucose 83 Calcium 9.8 Magnesium Total Bilirubin 1.6 H Direct Bilirubin 0.9 H AST 39 H ALT 26 Alkaline Phosphatase 153 H Troponin I High Sens 45.3 H B-Natriuretic Peptide Total Protein 7.7 Albumin 4.8 Urine Color Urine Appearance Urine pH Ur Specific Jackson Urine Protein Urine Glucose (UA) Urine Ketones Urine Blood Urine Nitrite Ur Leukocyte Esterase Urine RBC Urine WBC Ur Squamous Epith Cells Ur Renal Epithelial Cell Urine Bacteria COVID-19 (MARI) COVID-19 Clin Com Imaging Radiologist's impression: Impressions Chest X-Ray 06/14/20 12:46 IMPRESSION: Chronic interstitial lung disease with irregular stable scarring right apex. New trace effusion right base. Assessment and Plan (1) Atrial fibrillation: Status: Acute (2) CHF (congestive heart failure): Status: Acute Pleasant 84-year-old female who is presenting for shortness of breath. She has advanced COPD and is on home oxygen 27/10. She was noticed to have some interstitial changes on chest x-ray and BNP was elevated and she was given IV Lasix. She is saying she still feels short of breath. She has no chest discomfort. No peripheral edema or other signs of volume overload right now. Blood pressure control is good right now. I think she can have another dose of IV Lasix today and can be started on 40 mg of p.o. Lasix tomorrow. We have to be careful with her blood pressure because she has known history of dysautonomia and orthostasis. Thank you for allowing me to participate in the care of your patient. Please feel free to contact me if you have any questions.
[2020-06-15] MEDS: Albuterol Sulfate (0.083%) 2.5 MG/3 ML VIAL.NEB INHALE (13:26)
--- NOTE | 2020-06-15 13:43 | HO.PM.IMPN ---
Subjective Subjective Date of Service: 06/15/20 <PEYTON Campbell - Last Filed: 06/15/20 14:16> 06/15/20 <Honorio Patrick MD - Last Filed: 06/15/20 15:18> Interval History: f/u admission for dyspnea, chf Reports ongoing dyspnea, no chest pain, no other complaints <PEYTON Campbell - Last Filed: 06/15/20 14:16> Review of Systems Review of Systems: Yes all other systems are reviewed and are negative <PEYTON Campbell - Last Filed: 06/15/20 14:16> Constitutional Constitutional: Denies chills and Denies fever(s) <PEYTON Campbell - Last Filed: 06/15/20 14:16> Cardiovascular Cardiovascular: Denies chest pain and Reports dyspnea <PEYTON Campbell - Last Filed: 06/15/20 14:16> Respiratory Respiratory: Denies cough and Reports dyspnea <PEYTON Campbell - Last Filed: 06/15/20 14:16> Gastrointestinal Gastrointestinal: Denies abdominal pain <PEYTON Campbell - Last Filed: 06/15/20 14:16> Physical Exam Vital Signs: Vital Signs: Last Vital Signs Temp 97.8 F 06/15/20 12:00 Pulse 77 06/15/20 13:29 Resp 20 06/15/20 12:00 BP 131/77 06/15/20 12:00 Pulse Ox 91 L 06/15/20 12:00 Body Mass Index 17.6 <PEYTON Campbell - Last Filed: 06/15/20 14:16> Const: General: comfortable, no acute distress, alert and awake <PEYTON Campbell - Last Filed: 06/15/20 14:16> Nutritional Appearance: well nourished <PEYTON Campbell - Last Filed: 06/15/20 14:16> Orientation/consciousness: patient oriented x3 <PEYTON Campbell - Last Filed: 06/15/20 14:16> HENMT: Head: Yes normocephalic and Yes atraumatic <PEYTON Campbell - Last Filed: 06/15/20 14:16> Eyes: Sclerae: sclerae normal <PEYTON Campbell - Last Filed: 06/15/20 14:16> Chest: Chest palpation & inspection: normal inspection of the chest <PEYTON Campbell - Last Filed: 06/15/20 14:16> Resp: Effort & Inspection: normal respiratory effort and no respiratory distress <PEYTON Campbell - Last Filed: 06/15/20 14:16> Auscultation: clear to auscultation bilaterally <PEYTON Campbell - Last Filed: 06/15/20 14:16> Cardio: Rate: regular rate <PEYTON Campbell - Last Filed: 06/15/20 14:16> Rhythm: regular rhythm <PEYTON Campbell - Last Filed: 06/15/20 14:16> GI: Palpation (GI): Soft to palpation and nontender <PEYTON Campbell - Last Filed: 06/15/20 14:16> Skin: General skin exam: no rashes or lesions noted <PEYTON Campbell - Last Filed: 06/15/20 14:16> Neuro: General: patient oriented x3 <PEYTON Campbell - Last Filed: 06/15/20 14:16> Cranial nerves: Yes CN's II-XII intact bilaterally and Yes Bilaterally intact EOM present <PEYTON Campbell - Last Filed: 06/15/20 14:16> Extrem: Other: normal to inspection, no leg edema <PEYTON Campbell - Last Filed: 06/15/20 14:16> Objective Data Current Medications Generic Name Dose Route Start Last Admin Trade Name Freq PRN Reason Stop Dose Admin Albuterol Sulfate 2.5 mg 06/14/20 17:39 06/15/20 13:26 Albuterol Sulfate (0.083%) 2.5 Mg/3 Ml Vial.Neb INHALE 2.5 mg Q6H PRN Administration wheezing Albuterol Sulfate 1 puff 06/15/20 08:24 Albuterol Sulfate 90 Mcg 8 Gm Inhaler INHALE QID PRN Shortness Of Breath Apixaban 2.5 mg 03/11/21 21:00 06/15/20 08:26 Apixaban 2.5 Mg Tablet PO 2.5 mg BID TAMMY Administration Diltiazem HCl 120 mg 06/15/20 09:00 06/15/20 08:26 Diltiazem Hcl Cd 120 Mg Cap.Er.Deg PO 120 mg DAILY TAMMY Administration Protocol Furosemide 40 mg 06/16/20 09:00 Furosemide 40 Mg Tablet PO DAILY TAMMY Protocol Furosemide 40 mg 06/15/20 13:31 Furosemide 40 Mg/4 Ml Vial IVPUSH 06/15/20 13:32 ONCE ONE Protocol Levothyroxine Sodium 25 mcg 06/15/20 09:00 06/15/20 08:26 Levothyroxine Sodium 25 Mcg Tablet PO 25 mcg DAILY TAMMY Administration Loratadine 10 mg 06/15/20 08:24 Loratadine 10 Mg Tablet PO DAILY PRN Allergy Symptoms Midodrine 10 mg 06/14/20 21:00 06/15/20 08:25 Midodrine Hcl 10 Mg Tablet PO 10 mg TID TAMMY Administration Multivitamins 1 tab 06/15/20 09:00 06/15/20 08:58 B-Complex With Vitamin C Tablet PO 1 tab DAILY TAMMY Administration Multivitamins/Vitamin C 1 tab 06/15/20 09:00 06/15/20 08:59 Multivitamin Tablet PO 1 tab DAILY TAMMY Administration Ondansetron HCl 4 mg 06/14/20 17:39 Ondansetron Hcl 4 Mg/2 Ml Vial IVPUSH Q8H PRN Nausea and Vomiting Pharmacy Consult 1 each 06/14/20 14:00 Consult Rx Perform Med Rec MISCELLANE ONCE PRN Consult order Potassium Chloride 20 meq 06/15/20 09:00 06/15/20 08:58 Potassium Chloride Er 20 Meq Tab.Er.Prt PO 20 meq DAILY TAMMY Administration Pravastatin Sodium 10 mg 06/14/20 21:00 06/14/20 20:50 Pravastatin Sodium 10 Mg Tablet PO 10 mg BEDTIME TAMMY Administration Sodium Chloride 3 ml 06/14/20 17:39 06/15/20 08:26 0.9 % Sodium Chloride Flush 3 Ml Syringe IVFLUSH 3 ml QSHIFT TAMMY Administration <PEYTON Campbell - Last Filed: 06/15/20 14:16> Labs CBC & Chem 7: : 06/15/20 05:42 06/15/20 05:42 <PEYTON Campbell - Last Filed: 06/15/20 14:16> Microbiology Microbiology Results: Microbiology 06/14/20 Unknown Urine clean catch - Clean Catch Midstream Urine Culture - Preliminary Gram negative magdaleno <PEYTON Campbell - Last Filed: 06/15/20 14:16> Assessment and Plan (1) CHF (congestive heart failure): Status: Acute <PEYTON Campbell - Last Filed: 06/15/20 14:16> (2) Atrial fibrillation: Status: Acute <PEYTON Campbell - Last Filed: 06/15/20 14:16> (3) Orthostatic hypotension dysautonomic syndrome: Status: Acute <PEYTON Campbell - Last Filed: 06/15/20 14:16> Assessment and Plan: This is an 84 yo F with multiple medical problems including Chronic Respiratory Failure on 3-4L at home, COPD, CHF, Orthostatic Hypotension, A. Fib on Eliquis who presents to the hospital with worsening progressive dyspnea, initially on exertion but eventually at rest. Her work up is consistent with CHF exacerbation Acute CHF LVEF normal last echo Sep 2019; mild RV dysfunction seen on that echo Seen by cardiology, rec continue IV lasix today and increase dose of PO lasix in am Chronic Resp failure/Chronic COPD continue inhalers continue o2 Orthostatic hypotension continue midodrine Elevated LFTs ? from hepatic congestion will rehceck after diuresis no RUQ pain to suggest primary hypothyroidism continue synthroid HLD continue statin Full Code (patient has a MOLST from at home, but at this time she is unable to decide and so will be presumed full code) Daughter is HCP EVT ppx - Eliquis This case was discussed with Dr. Patrick <PEYTON Campbell - Last Filed: 06/15/20 14:16>
[2020-06-15] MEDS: Furosemide 40 MG/4 ML VIAL IVPUSH (13:59)
--- NOTE | 2020-06-15 16:11 | MHC.CM.PN ---
CM met with pt who reports she lives alone but her daughter lives next door and is available if needed. Pt reports she is independent with care and use a rollator to ambulate. Pt is also oxygen dependent and has a nebulizer. Pt confirms her PCP is Michael Godinez and she has a HCP she believes is on file. IMM delivered Current DC plan is home with no services pt reports her daughterRacquel will provide transportation and has access to her portable oxygen tank.
[2020-06-15] MEDS: Pravastatin Sodium 10 MG TABLET PO (21:07)
[2020-06-16] VITALS (12 sets, daily range): BP systolic 118–155; BP diastolic 60–86; PULSE 72–97; RESP 18–20; TEMP 36.1–36.9; O2SAT 94–98
[2020-06-16] MEDS: Potassium Chloride ER 20 MEQ TAB.ER.PRT PO (09:36)
[2020-06-16] MEDS: dilTIAZem HCL CD 120 MG CAP.ER.DEG PO (09:36)
[2020-06-16] MEDS: Multivitamin TABLET 1 TAB PO (09:36)
[2020-06-16] MEDS: Levothyroxine Sodium 25 MCG TABLET PO (09:36)
[2020-06-16] MEDS: Apixaban 2.5 MG TABLET PO ×2 (09:37→22:05)
[2020-06-16] MEDS: Midodrine HCl 10 MG TABLET PO ×3 (09:37→22:03)
[2020-06-16] MEDS: Furosemide 40 MG TABLET PO (09:37)
[2020-06-16] MEDS: 0.9 % Sodium Chloride Flush 3 ML SYRINGE IVFLUSH ×3 (09:39→22:05)
[2020-06-16 11:01] LABS: Alanine Aminotransferase 26 U/L (0-31); Albumin Level 4.2 g/dL (3.5-5.0); Alkaline Phosphatase 151 U/L (39-117); Anion Gap 17 (12-20); Aspartate Amino Transferase 40 U/L (5-31); Bilirubin Direct 0.7 mg/dL (0.0-0.5); Bilirubin Total 1.5 mg/dL (0.0-1.0); Blood Urea Nitrogen 22 mg/dL (9-16); Calcium 8.9 mg/dL (8.4-10.2); Carbon Dioxide 30 mmol/L (22-29); Chloride 96 mmol/L (96-108); Creatinine Clr Calc Pharmacy 24.7; Estimated Glomerular Filt Rate 43; Glucose Random 84 mg/dL (60-115); Potassium 2.8 mmol/L (3.3-5.1); Sodium 140 mmol/L (135-145); Total Protein 6.9 g/dL (6.5-8.0)
--- NOTE | 2020-06-16 11:11 | PM.PNCARD ---
Subjective Subjective Date of Service: 06/16/20 Interval history: Feeling better Euvolemic Physical Exam Vital Signs: Last Vital Signs Temp 98.4 F 06/16/20 08:00 Pulse 76 06/16/20 09:37 Resp 20 06/16/20 08:00 BP 129/60 06/16/20 09:37 Pulse Ox 95 06/16/20 08:00 Body Mass Index 17.6 GENERAL APPEARANCE: in no acute distress, well developed, well nourished. HEENT: unremarkable. HEAD: normocephalic, atraumatic. NECK/THYROID: Left carotid bruit present, no jugular venous distention. SKIN: no suspicious lesions, warm and dry. HEART: no murmurs, irregular rate and rhythm, S1, S2 normal. LUNGS: clear to auscultation bilaterally. ABDOMEN: normal, bowel sounds present, soft, nontender, nondistended. EXTREMITIES: no clubbing, cyanosis, or edema. PERIPHERAL PULSES: equal. NEUROLOGIC: nonfocal, alert and oriented. PSYCH: mood/affect full range. Results Labs and Meds Result diagrams: 06/15/20 05:42 06/16/20 06:04 Lab results: Laboratory Results - last 24 hr 06/16/20 06:04 Sodium 140 Potassium 2.8 L Chloride 96 Carbon Dioxide 30 H Anion Gap 17 BUN 22 H D Creatinine 1.19 Estim Creat Clear Calc 24.7 Estimated GFR 43 Random Glucose 84 Calcium 8.9 D Total Bilirubin 1.5 H Direct Bilirubin 0.7 H AST 40 H ALT 26 Alkaline Phosphatase 151 H Total Protein 6.9 Albumin 4.2 Progress Note: A&P Assessment and plan (1) CHF (congestive heart failure): Status: Acute (2) Atrial fibrillation: Status: Acute Assessment and Plan: 84 female with chronic Afib and diastolic CHF Admitted with dyspnea and mild volume overload. Most of dyspneais due to severe COPD. Increase Lasix to 40 mg once a day at discharge. Monitor electrolytes. f/u with Dr Nicole. Signing off. Fall Risk Details Current Medications: Current Medications Generic Name Dose Route Start Last Admin Trade Name Freq PRN Reason Stop Dose Admin Albuterol Sulfate 2.5 mg 06/14/20 17:39 06/15/20 13:26 Albuterol Sulfate (0.083%) 2.5 Mg/3 Ml Vial.Neb INHALE 2.5 mg Q6H PRN Administration wheezing Albuterol Sulfate 1 puff 06/15/20 08:24 Albuterol Sulfate 90 Mcg 8 Gm Inhaler INHALE QID PRN Shortness Of Breath Apixaban 2.5 mg 06/14/20 21:00 06/16/20 09:37 Apixaban 2.5 Mg Tablet PO 2.5 mg BID TAMMY Administration Diltiazem HCl 120 mg 06/15/20 09:00 06/16/20 09:36 Diltiazem Hcl Cd 120 Mg Cap.Er.Deg PO 120 mg DAILY TAMMY Administration Protocol Furosemide 40 mg 06/16/20 09:00 06/16/20 09:37 Furosemide 40 Mg Tablet PO 40 mg DAILY TAMMY Administration Protocol Levothyroxine Sodium 25 mcg 06/15/20 09:00 06/16/20 09:36 Levothyroxine Sodium 25 Mcg Tablet PO 25 mcg DAILY TAMMY Administration Loratadine 10 mg 06/15/20 08:24 Loratadine 10 Mg Tablet PO DAILY PRN Allergy Symptoms Midodrine 10 mg 06/14/20 21:00 06/16/20 09:37 Midodrine Hcl 10 Mg Tablet PO 10 mg TID TAMMY Administration Multivitamins 1 tab 06/15/20 09:00 06/16/20 09:37 B-Complex With Vitamin C Tablet PO 1 tab DAILY TAMMY Administration Multivitamins/Vitamin C 1 tab 06/15/20 09:00 06/16/20 09:36 Multivitamin Tablet PO 1 tab DAILY TAMMY Administration Ondansetron HCl 4 mg 06/14/20 17:39 Ondansetron Hcl 4 Mg/2 Ml Vial IVPUSH Q8H PRN Nausea and Vomiting Pharmacy Consult 1 each 06/14/20 14:00 Consult Rx Perform Med Rec MISCELLANE ONCE PRN Consult order Potassium Chloride 20 meq 06/15/20 09:00 06/16/20 09:36 Potassium Chloride Er 20 Meq Tab.Er.Prt PO 20 meq DAILY TAMMY Administration Pravastatin Sodium 10 mg 06/14/20 21:00 06/15/20 21:07 Pravastatin Sodium 10 Mg Tablet PO 10 mg BEDTIME TAMMY Administration Sodium Chloride 3 ml 06/14/20 17:39 06/16/20 09:39 0.9 % Sodium Chloride Flush 3 Ml Syringe IVFLUSH 3 ml QSHIFT TAMMY Administration Time Spent With Patient Time: Total time spent is greater than 50% in coordination of care (as documented) at patient's floor/unit and/or counseling patient: Time with patient: less than 15 minutes
[2020-06-16] MEDS: Potassium Chloride Packet 20 MEQ PACKET PO (11:21)
[2020-06-16] MEDS: Potassium Chloride/H20 10 MEQ/100 ML PIGGYBACK 100 MEQ IV ×2 (11:22→13:24)
--- NOTE | 2020-06-16 11:38 | P.DS_ITS ---
DS: Providers Provider Date of Service: 06/16/20 Date of admission: 06/14/20 16:00 Primary care physician: Michael Godinez MD Consults: 06/15/20 09:07 Consult to Cardiology Routine Consulting Provider: You Moreno Reason for consultation: dyspena Has provider been notified: No DS: Diagnosis Discharge Diagnosis (1) CHF (congestive heart failure): Status: Acute (2) Atrial fibrillation: Status: Acute (3) Hypokalemia: Status: Acute DS: Medications Discharge Medications Home Medications: Home Medications Medication Instructions Recorded Confirmed albuterol sulfate 2.5 mg INHALATION Q6H PRN 06/11/20 06/14/20 apixaban 2.5 mg tablet 2.5 mg PO BID 06/11/20 06/14/20 fluticasone fur. 100 mcg-umeclid 1 ea INHALATION DAILY 06/11/20 06/14/20 62.5 mcg-vilant 25 mcg inhalat.powder furosemide 20 mg tablet 20 mg PO DAILY 06/11/20 06/14/20 levothyroxine 25 mcg tablet 25 mcg PO DAILY 06/11/20 06/14/20 pravastatin 20 mg tablet 10 mg PO BEDTIME 06/11/20 06/14/20 albuterol sulfate 1 inh INHALATION QID PRN 06/14/20 06/14/20 loratadine 10 mg PO DAILY PRN 06/14/20 06/14/20 multivitamin 1 tab PO DAILY 06/14/20 06/14/20 vitamin B complex 1 tab PO DAILY 06/14/20 06/14/20 Previous Rx's Medication Instructions Recorded midodrine 10 mg tablet 10 mg PO TID 90 Days #270 tab 01/24/20 diltiazem HCl 120 mg 120 mg PO DAILY 90 Days #90 cap 03/20/20 capsule,extended release 24 hr potassium chloride 20 mEq 20 meq PO DAILY 30 Days #30 tab 05/04/20 tablet,extended release DS: Summary Hospital Course Hospital Course: Chief Complaint: shortness of breath This is a 84-year-old female with a past medical history of chronic respiratory failure on 3-4 L of oxygen at home, orthostatic hypotension, atrial fibrillation on Eliquis, COPD, CHF who presents to the hospital with progressive shortness of breath over the last 3-4 days. She reports that she generally is short of breath all the time but it became to the point where she could not even take a few steps and so she presented to the hospital. She reports chronic orthopnea symptoms and sleeps with 3-4 pillows. She does endorse a several lb weight gain as well. She denies any lower extremity edema. She reports a chronic cough due to her COPD which is unchanged. She denies any fevers. She does endorse that she has been vaccinated with the 1st dose of COVID-19. Patients daughter is bedside who corroborates the story. In the emergency room she was noted to be in respiratory distress. Her chest x- ray showed some interstitial findings. BNP was elevated greater than 1900. She was given a dose of IV Lasix and admission was requested for congestive heart failure exacerbation. Hospital course HFpEF Patient was admitted to the intermediate care unit. She was started on IV Lasix. She was seen by Cardiology who agreed with IV diuresis. They recommended increasing her home dose of Lasix from 20 mg daily to 40 mg daily. She has remained on her baseline oxygen. Today she is net negative 2L and she reports improvement in respiratory status and is now stable for discharge. Hypokalemia Likely related to diuretics. Potassium was replaced. Will increase potassium dose to BID. Should repeat labs in 3 days and follow up with PCP for close monitoring of electrolytes. LFTs were slightly elevated. They remained stable on repeat. Patient denies any abdominal pain. Would recommend outpatient follow-up for repeat labs with PCP. Time Spent with Patient Time attestation: Total time spent providing and/or coordinating discharge services: Discharge coordination time: Greater than 30 minutes Physical Exam Vital Signs: Vital Signs: Last Vital Signs Temp 98.4 F 06/16/20 08:00 Pulse 76 06/16/20 09:37 Resp 20 06/16/20 08:00 BP 129/60 06/16/20 09:37 Pulse Ox 95 06/16/20 08:00 Body Mass Index 17.6 Const: General: comfortable, no acute distress, alert and awake Nutritional Appearance: well nourished Orientation/consciousness: patient oriented x3 HENMT: Head: Yes normocephalic and Yes atraumatic Eyes: Sclerae: sclerae normal Chest: Chest palpation & inspection: normal inspection of the chest Resp: Effort & Inspection: normal respiratory effort and no respiratory distress Auscultation: clear to auscultation bilaterally Cardio: Rate: regular rate Rhythm: regular rhythm GI: Palpation (GI): Soft to palpation and nontender Skin: General skin exam: no rashes or lesions noted Neuro: General: patient oriented x3 Cranial nerves: Yes CN's II-XII intact bilaterally and Yes Bilaterally intact EOM present Extrem: Other: normal to inspection, no leg edema DS: Data Data Completed and Pending Labs on day of discharge: Laboratory Results - last 24 hr 06/16/20 06:04 Sodium 140 Potassium 2.8 L Chloride 96 Carbon Dioxide 30 H Anion Gap 17 BUN 22 H D Creatinine 1.19 Estim Creat Clear Calc 24.7 Estimated GFR 43 Random Glucose 84 Calcium 8.9 D Total Bilirubin 1.5 H Direct Bilirubin 0.7 H AST 40 H ALT 26 Alkaline Phosphatase 151 H Total Protein 6.9 Albumin 4.2 Discharge Plan Discharge Patient Disposition: Home, Self-Care Referrals: Michael Godinez MD [Primary Care Provider] - Discharge Medications: New furosemide [Lasix] 40 mg tablet 40 mg PO DAILY 30 Days Qty: 30 RF: 0 potassium chloride 20 mEq tablet extended release 20 meq PO BID 30 Days Qty: 60 RF: 0 Continued midodrine 10 mg tablet 10 mg PO TID 90 Days Qty: 270 RF: 1 diltiazem HCl 120 mg capsule,extended release 24hr 120 mg PO DAILY 90 Days Qty: 90 RF: 1 multivitamin Tablet 1 tab PO DAILY RF: 0 vitamin B complex Tablet 1 tab PO DAILY RF: 0 albuterol sulfate 90 mcg/actuation Hfa Aerosol Inhaler 1 inh INHALATION QID PRN (Reason: Shortness Of Breath) RF: 0 loratadine 10 mg Tablet 10 mg PO DAILY PRN (Reason: Allergy Symptoms) RF: 0 Trelegy Ellipta 100-62.5-25 mcg blister with device 1 ea inhalation DAILY RF: 0 levothyroxine 25 mcg tablet 25 mcg PO DAILY RF: 0 albuterol sulfate 2.5 mg /3 mL (0.083 %) solution for nebulization 2.5 mg inhalation Q6H PRN (Reason: wheezing) RF: 0 pravastatin 20 mg tablet 10 mg PO BEDTIME RF: 0 Eliquis 2.5 mg tablet 2.5 mg PO BID RF: 0 Discontinued potassium chloride 20 mEq tablet extended release 20 meq PO DAILY 30 Days Qty: 30 RF: 5 furosemide 20 mg tablet 20 mg PO DAILY RF: 0 Activity on Discharge: As tolerated Stand Alone Forms: Patient Portal Discharge page Other Ambulatory Orders: Basic Metabolic Panel (Routine) Timeframe: 20200619 Facility: [facility] - Location: Laboratory Ordered By: Caryl Renee Care Plan Goals: See below Health Concerns: CHF Low potassium Orthostatic Hypotension Plan of Treatment: Your dose of lasix has been increased from 20 mg daily to 40 mg daily For your history of orthostatic hypotension get up slowly from sitting position, sit for few minutes before standing up. Your potassium levels were low and your dose of potassium was changed to 20 twice daily Please have your labs rechecked on Monday 06/19 Please call your PCP to schedule a follow up appointment
[2020-06-16 15:28] LABS: Potassium 3.8 mmol/L (3.3-5.1)
--- NOTE | 2020-06-16 15:40 | HO.PM.IMPN ---
Subjective Subjective Date of Service: 06/16/20 Interval History: f/u chf exacerbation,hypokalemia was feeling better in am, feels tired now Review of Systems Review of Systems: Yes all other systems are reviewed and are negative Constitutional Constitutional: Denies chills and Denies fever(s) Cardiovascular Cardiovascular: Denies chest pain Respiratory Respiratory: Denies cough Gastrointestinal Gastrointestinal: Denies abdominal pain Physical Exam Vital Signs: Vital Signs: Last Vital Signs Temp 97.3 F 06/16/20 15:28 Pulse 88 06/16/20 15:28 Resp 20 06/16/20 15:28 BP 120/76 06/16/20 15:28 Pulse Ox 96 06/16/20 15:28 Body Mass Index 17.6 Const: General: comfortable, no acute distress, awake and Physically active Nutritional Appearance: thin Orientation/consciousness: patient oriented x3 HENMT: Head: Yes normocephalic and Yes atraumatic Eyes: Sclerae: sclerae normal Chest: Chest palpation & inspection: normal inspection of the chest Resp: Effort & Inspection: normal respiratory effort and no respiratory distress Cardio: Rate: regular rate Rhythm: regular rhythm GI: Palpation (GI): Soft to palpation and nontender Skin: General skin exam: no rashes or lesions noted Neuro: General: patient oriented x3 Cranial nerves: Yes CN's II-XII intact bilaterally and Yes Bilaterally intact EOM present Extrem: General: Yes normal to inspection Objective Data Current Medications Generic Name Dose Route Start Last Admin Trade Name Freq PRN Reason Stop Dose Admin Albuterol Sulfate 2.5 mg 06/14/20 17:39 06/15/20 13:26 Albuterol Sulfate (0.083%) 2.5 Mg/3 Ml Vial.Neb INHALE 2.5 mg Q6H PRN Administration wheezing Albuterol Sulfate 1 puff 06/15/20 08:24 Albuterol Sulfate 90 Mcg 8 Gm Inhaler INHALE QID PRN Shortness Of Breath Apixaban 2.5 mg 06/14/20 21:00 06/16/20 09:37 Apixaban 2.5 Mg Tablet PO 2.5 mg BID TAMMY Administration Diltiazem HCl 120 mg 06/15/20 09:00 06/16/20 09:36 Diltiazem Hcl Cd 120 Mg Cap.Er.Deg PO 120 mg DAILY TAMMY Administration Protocol Furosemide 40 mg 06/16/20 09:00 06/16/20 09:37 Furosemide 40 Mg Tablet PO 40 mg DAILY TAMMY Administration Protocol Levothyroxine Sodium 25 mcg 06/15/20 09:00 06/16/20 09:36 Levothyroxine Sodium 25 Mcg Tablet PO 25 mcg DAILY TAMMY Administration Loratadine 10 mg 06/15/20 08:24 Loratadine 10 Mg Tablet PO DAILY PRN Allergy Symptoms Midodrine 10 mg 06/14/20 21:00 06/16/20 09:37 Midodrine Hcl 10 Mg Tablet PO 10 mg TID TAMMY Administration Multivitamins 1 tab 06/15/20 09:00 06/16/20 09:37 B-Complex With Vitamin C Tablet PO 1 tab DAILY TAMMY Administration Multivitamins/Vitamin C 1 tab 06/15/20 09:00 06/16/20 09:36 Multivitamin Tablet PO 1 tab DAILY TAMMY Administration Ondansetron HCl 4 mg 06/14/20 17:39 Ondansetron Hcl 4 Mg/2 Ml Vial IVPUSH Q8H PRN Nausea and Vomiting Pharmacy Consult 1 each 06/14/20 14:00 Consult Rx Perform Med Rec MISCELLANE ONCE PRN Consult order Potassium Chloride 20 meq 06/15/20 09:00 06/16/20 09:36 Potassium Chloride Er 20 Meq Tab.Er.Prt PO 20 meq DAILY TAMMY Administration Pravastatin Sodium 10 mg 06/14/20 21:00 06/15/20 21:07 Pravastatin Sodium 10 Mg Tablet PO 10 mg BEDTIME TAMMY Administration Sodium Chloride 3 ml 06/14/20 17:39 06/16/20 09:39 0.9 % Sodium Chloride Flush 3 Ml Syringe IVFLUSH 3 ml QSHIFT TAMMY Administration Labs CBC & Chem 7: 06/15/20 05:42 06/16/20 14:55 Microbiology Microbiology Results: Microbiology 06/14/20 Unknown Urine clean catch - Clean Catch Midstream Urine Culture - Final Klebsiella pneumoniae Assessment and Plan (1) CHF (congestive heart failure): Status: Acute (2) Atrial fibrillation: Status: Acute (3) Hypokalemia: Status: Acute Assessment and Plan: This is an 84 yo F with multiple medical problems including Chronic Respiratory Failure on 3-4L at home, COPD, CHF, Orthostatic Hypotension, A. Fib on Eliquis who presents to the hospital with worsening progressive dyspnea, initially on exertion but eventually at rest. Her work up is consistent with CHF exacerbation Acute CHF. Improving LVEF normal last echo Sep 2019; mild RV dysfunction seen on that echo Seen by cardiology, rec increase dose of PO lasix on discharge. Chronic Resp failure/Chronic COPD continue inhalers continue o2 breathing treatments Orthostatic hypotension continue midodrine Elevated LFTs stable. no RUQ pain outpatient followup hypothyroidism continue synthroid HLD continue statin Full Code (patient has a MOLST from at home, but at this time she is unable to decide and so will be presumed full code) Daughter is HCP EVT erik Sousa This case was discussed with Dr. Patrick
[2020-06-16] MEDS: Albuterol/Iprat 2.5/0.5MG 3 ML AMPUL.NEB INHALE ×2 (15:55→20:04)
[2020-06-16] MEDS: Pravastatin Sodium 10 MG TABLET PO (22:05)
[2020-06-17 03:57] VITALS: BP 132/87; PULSE 77; RESP 18; TEMP 36.6; O2SAT 97
[2020-06-17] MEDS: Albuterol/Iprat 2.5/0.5MG 3 ML AMPUL.NEB INHALE ×2 (07:16→11:11)
[2020-06-17 07:17] VITALS: O2SAT 94
[2020-06-17 07:38] VITALS: BP 161/85; PULSE 86; RESP 20; TEMP 36.4; O2SAT 92
[2020-06-17 08:34] LABS: Anion Gap 17 (12-20); Blood Urea Nitrogen 25 mg/dL (9-16); Calcium 9.4 mg/dL (8.4-10.2); Carbon Dioxide 28 mmol/L (22-29); Chloride 97 mmol/L (96-108); Creatinine Clr Calc Pharmacy 22.6; Estimated Glomerular Filt Rate 39; Glucose Random 96 mg/dL (60-115); Potassium 2.8 mmol/L (3.3-5.1); Sodium 139 mmol/L (135-145)
[2020-06-17] MEDS: Furosemide 40 MG TABLET PO (09:07)
[2020-06-17] MEDS: Midodrine HCl 10 MG TABLET PO (09:07)
[2020-06-17] MEDS: dilTIAZem HCL CD 120 MG CAP.ER.DEG PO (09:07)
[2020-06-17] MEDS: Multivitamin TABLET 1 TAB PO (09:07)
[2020-06-17] MEDS: 0.9 % Sodium Chloride Flush 3 ML SYRINGE IVFLUSH (09:08)
[2020-06-17] MEDS: Spironolactone 25 MG TABLET 12.5 MG PO (09:08)
[2020-06-17] MEDS: Potassium Chloride Packet 20 MEQ PACKET 40 MEQ PO (09:08)
[2020-06-17] MEDS: Apixaban 2.5 MG TABLET PO (09:09)
[2020-06-17] MEDS: Levothyroxine Sodium 25 MCG TABLET PO (09:09)
[2020-06-17] MEDS: Potassium Chloride/H20 10 MEQ/100 ML PIGGYBACK 100 MEQ IV ×2 (09:29→10:22)
[2020-06-17 11:12] VITALS: O2SAT 95
[2020-06-17 12:00] VITALS: BP 138/73; PULSE 90; RESP 20; TEMP 36.6; O2SAT 97
[2020-06-17 13:05] LABS: Potassium 3.7 mmol/L (3.3-5.1)
== END 2020-06-17 15:05 | disposition home or self-care (01) | DRG 292 ==
LOC: HO.ED 15:15 → HO.EDOVER 16:07 → HO.IMC 16:09
PROVIDERS: Physician Assistant; Physician Assistant Medical; Admitting Provider Family Medicine; Emergency Provider Emergency Medicine Emergency Medical Services; PCP Internal Medicine; Visit Provider Internal Medicine
DX: I50.33 Acute on chronic diastolic (congestive) heart failure (principal); I48.20 Chronic atrial fibrillation, unspecified; J96.10 Chronic respiratory failure, unspecified whether with hypoxia or hypercapnia; E03.9 Hypothyroidism, unspecified; E87.6 Hypokalemia; I95.1 Orthostatic hypotension; E78.5 Hyperlipidemia, unspecified; J44.9 Chronic obstructive pulmonary disease, unspecified; Z99.81 Dependence on supplemental oxygen; Z20.822 Contact with and (suspected) exposure to COVID-19; Z88.5 Allergy status to narcotic agent; Z79.01 Long term (current) use of anticoagulants; Z79.52 Long term (current) use of systemic steroids; Z79.890 Hormone replacement therapy; Z79.899 Other long term (current) drug therapy
CPT/HCPCS: 36415; 71045; 80048; 80076; 81001; 83735; 83880; 84132; 84484; 85025; 85610; 85730; 87086; 87088; 87186; 87635; 93005; 94640; 96374; 99285; J1940; Q3014

== ENCOUNTER 2020-09-01 19:29 | Inpatient (IN) | payer MEDICARE, SELFPAY ==
--- NOTE | 2020-09-01 | ECG_ITS ---
Test Reason : SHORTNESS OF BREATH Blood Pressure : / mmHG Vent. Rate : 107 BPM Atrial Rate : 044 BPM P-R Int : 000 ms QRS Dur : 086 ms QT Int : 366 ms P-R-T Axes : 000 061 244 degrees QTc Int : 488 ms Atrial fibrillation with rapid ventricular response with premature ventricular or aberrantly conducted complexes ST & T wave abnormality, consider inferior ischemia ST & T wave abnormality, consider anterolateral ischemia Abnormal ECG When compared with ECG of 14-JUN-2020 15:20, ST now depressed in Anterior leads T wave inversion now evident in Anterolateral leads QT has lengthened Referred By: Claire Shrestha Electronically Signed By:NOEL APONTE
--- NOTE | ~2020-09-01 | CT_ITS ---
EXAMINATION: CT CHEST WITHOUT CONTRAST CLINICAL INFORMATION: Fever. Cough. Shortness of breath. COMPARISON: Most recent chest radiograph done earlier the same day and CT chest dated 08/03/2018. TECHNIQUE: Multidetector volumetric CT imaging of the chest was done. Axial MIP volume rendering provided. Sagittal and coronal reformatted images were obtained. This CT examination was performed using dose optimization techniques as appropriate, variously including the following: Automated exposure control. Adjustment of mA and/or kV according to patient size (this includes techniques or standardized protocols for targeted exams where dose is matched to indication/reason for exam; i.e. extremities or head). Use of iterative reconstruction technique. DLP: 173 mGy-cm FINDINGS: CONTINUOUS IMPROVEMENT MANAGER: Unremarkable. LUNGS: Prominent emphysematous changes are redemonstrated with diffuse chronic interstitial prominence and bilateral upper lobe linear scarring. Findings are similar when compared to the prior examination. No new pulmonary nodule, mass, or confluent airspace consolidation. The central airways are patent. MEDIASTINUM: No cardiomegaly. No pericardial effusion. No thoracic aortic dilatation. Atherosclerotic calcifications. Prominent superior mediastinal lymph nodes are unchanged with the largest in the precarinal region measuring 1.3 x 2.2 cm. PLEURA: There is no pleural effusion. No pleural mass or thickening. AXILLA: No lymphadenopathy. UPPER ABDOMEN: The visualized upper abdominal structures are unremarkable. OSSEOUS STRUCTURES: Unremarkable. CT/CT chest wo con IMPRESSION: 1. Prominent emphysematous changes with diffuse chronic interstitial lung disease, similar when compared to the prior examination. 2. No new pulmonary nodule, mass, or airspace consolidation. 3. Stable, prominent superior mediastinal lymph nodes.
--- NOTE | ~2020-09-01 | XR_ITS ---
EXAMINATION: XR CHEST CLINICAL INFORMATION: Chest pain, shortness of breath. COMPARISON: Multiple priors, most recent chest radiograph dated 06/14/2020 TECHNIQUE: Frontal view of the chest was obtained. FINDINGS: Chronic diffuse interstitial prominence, unchanged. No focal airspace consolidation. No pleural effusion or pneumothorax. Stable cardiomediastinal silhouette. XR/XR chest 1V IMPRESSION: Chronic interstitial lung disease, unchanged. No acute cardiopulmonary findings.
[2020-09-01 19:34] VITALS: BP 153/84; BP 157/83; PULSE 120; RESP 17; TEMP 38.1; O2SAT 93; O2SAT 96; BMI 16.5
[2020-09-01 19:39] VITALS: BP 153/84; PULSE 120; RESP 17; TEMP 38.1; O2SAT 93
--- NOTE | 2020-09-01 20:00 | ED_ITS ---
HPI - SOB/Dyspnea General Chief Complaint: Dyspnea Stated Complaint: weakness sob Time Seen by Provider: 09/01/20 19:43 Source: patient and EMS Mode of arrival: EMS History of Present Illness HPI Narrative: 84-year-old female with a past medical history of arthritis, AFib on Eliquis, CHF, COPD on chronic O2 3.5L at rest, orthostatic hypotension, osteoporosis, presenting to the ED complaining of worsening SOB x today, cough, chest pain, and fever. Admits to requiring more O2 at home at rest. Denies chills, abdominal pain, nausea/vomiting/diarrhea, LE edema, dysuria/hematuria, recent travel, COVID-19 exposure MD elicited complaint: shortness of breath Related Data Home Medications Medication Instructions Recorded Confirmed albuterol sulfate 2.5 mg INHALATION Q6H PRN 06/11/20 06/14/20 fluticasone fur. 100 mcg-umeclid 1 ea INHALATION DAILY 06/11/20 06/14/20 62.5 mcg-vilant 25 mcg inhalat.powder levothyroxine 25 mcg tablet 25 mcg PO DAILY 06/11/20 06/14/20 pravastatin 20 mg tablet 10 mg PO BEDTIME 06/11/20 06/14/20 albuterol sulfate 1 inh INHALATION QID PRN 06/14/20 06/14/20 loratadine 10 mg PO DAILY PRN 06/14/20 06/14/20 multivitamin 1 tab PO DAILY 06/14/20 06/14/20 vitamin B complex 1 tab PO DAILY 06/14/20 06/14/20 Previous Rx's Medication Instructions Recorded diltiazem HCl 120 mg 120 mg PO DAILY 90 Days #90 cap 03/20/20 capsule,extended release 24 hr furosemide [Lasix] 40 mg PO DAILY 30 Days #30 tab 06/16/20 potassium chloride 20 meq PO BID 30 Days #60 tab 06/16/20 spironolactone [Aldactone] 12.5 mg PO DAILY 30 Days #15 tab 06/17/20 apixaban 2.5 mg tablet 2.5 mg PO BID 90 Days #180 tab 07/25/20 midodrine 10 mg tablet 10 mg PO TID 90 Days #270 tab 08/09/20 Allergies Allergy/AdvReac Type Severity Reaction Status Date / Time acetaminophen [Percocet] Allergy Unknown vomiting Verified 04/04/20 01:45 morphine [MORPHINE] Allergy Unknown NAUSEA & Verified 04/04/20 01:45 VOMITING, vomiting oxycodone [From PERCODAN] AdvReac Unknown VOMITING Verified 04/04/20 01:45 Percodan Allergy Unknown vomiting Uncoded 11/02/19 00:00 From PERCOCET AdvReac Unknown NAUSEA & Uncoded 12/22/19 14:43 VOMITING Review of Systems Review of Systems: Constitutional: + Fever, No Chills, No Night Sweats, No Fatigue, No Malaise Cardiovascular: + Chest Pain, + SOB, + Dyspnea on Exertion, No Orthopnea, No Edema, No Palpitations Respiratory: + Cough, No Sputum, No Wheezing, No Dyspnea Gastrointestinal: No Nausea, No Vomiting, No Diarrhea, No Constipation, No Abdominal pain Genitourinary: No Dysuria, No Hematuria Musculoskeletal: No joint pain, No Myalgias Skin: No Skin Lesions, No rash Neuro: No Weakness, No Numbness, No Loss of Consciousness, + Headache Yes all other systems are reviewed and are negative [facility] Past Medical History Attestation statement: The following information was validated with the patient. Medical History (Updated 06/19/20 @ 00:01 by Aleksander De Jesus) Arthritis Atrial fibrillation CHF (congestive heart failure) Chronic respiratory failure with hypoxia COPD (chronic obstructive pulmonary disease) Orthostatic hypotension dysautonomic syndrome Osteoporosis Social History Social History Household Members: None Housing: House Do you presently have visiting nurse or other home services: No Alcohol intake: current Alcohol intake frequency: holidays/special occasions only Alcohol type: wine Patient Tobacco Use Status: Former Tobacco user Smoked in Last 30 Days: No Use of substances other than those prescribed or required for medical reasons: No Advance Directives: Yes Advance Directives on File: Yes Advance Directives Date on File: 06/14/20 service: No Current occupational status: retired Physical Exam Vital Signs: Vital Signs: Last Vital Signs Temp 100.6 F H 09/01/20 19:39 Pulse 120 H 09/01/20 19:39 Resp 17 09/01/20 19:39 BP 153/84 H 09/01/20 19:39 Pulse Ox 93 09/01/20 19:39 Oxygen Flow Rate 4 05/29/21 19:34 Body Mass Index 16.5 Const: General: cooperative, alert and awake Orientation/consciousness: patient oriented x3 Limitations: no limitations HENMT: Head: Yes normal to inspection Ears: hearing grossly normal bilaterally General nose exam: Normal external nose present Face and sinus: Yes normal facial exam Eyes: General: appearance normal, both eyes and all related structures EOM: EOMs intact bilaterally Neck: Neck: Yes normal visual inspection and Yes no meningeal signs Resp: Effort & Inspection: normal respiratory effort Auscultation: crackles bilateral at the base Cardio: Rate: tachycardic Rhythm: abnormal rhythm irregularly irregular Heart sounds: S1 normal heart sound present and S2 normal heart sound present GI: Inspection: Yes normal to inspection Palpation (GI): Soft to palpation, nontender, no guarding and not rigid Skin: Rashes: no rashes Wounds: no wounds Neuro: General: patient oriented x3 and no meningeal signs Gait exam (Neuro): Normal gait present Extrem: General: Yes no pedal edema and Yes no calf tenderness Course Course Course Narrative: -no leukocytosis, H&H stable XR chest 1V IMPRESSION: Chronic interstitial lung disease, unchanged. No acute cardiopulmonary findings. >> will obtain dry CT chest to further evaluate -2100--ED care transferred to DIRECTOR [employer]PERATIONS [employer]CAST Abigail pending remaining labs, UA, COVID-19 testing, CT chest, and anticipated admission MDM - SOB/Dyspnea MDM Narrative Medical decision making narrative: 84-year-old female with a past medical history of arthritis, AFib on Eliquis, CHF, COPD on chronic O2 3.5L at rest, orthostatic hypotension, osteoporosis, presenting to the ED complaining of worsening SOB x today, cough, chest pain, and fever. On exam low-grade temp 100.6?, AFib on the monitor with heart rate ranging 100-120, coughing on exam with crackles bibasilarly, satting 93% on 4 L NC (baseline 97% on 3.5 L). Concern for pneumonia/infectious etiology vs COVID-19/viral syndrome. Lower concern for PE as patient is anticoagulated on Eliquis. Rule out CHF follow clinically not fluid overloaded. Plan: EKG, labs, CXR, COVID-19 testing, DuoNeb, lactic/blood cultures, empiric broad-spectrum antibiotics due to patient recent hospitalization 2 months ago Medical Records Attestation: I reviewed the patient's medical records. Lab Data Attestation: I reviewed the patient's lab results. Result diagrams: 09/01/20 20:21 09/01/20 20:20 Labs: Lab Results 09/01/20 09/01/20 09/01/20 Range/Units 20:20 20:20 20:21 WBC 10.5 (4.8-10.8) X10*3/uL RBC 5.05 (4.20-5.50) X10*6/uL Hgb 14.4 (12.0-16.0) g/dl Hct 43.2 (37-47) % MCV 85.5 (80-98) fL MCH 28.5 (27.0-33.0) pg MCHC 33.3 (31.0-35.0) g/dl RDW 17.2 H (11.0-16.0) % Plt Count 253 (160-400) X10*3/uL MPV 9.1 L (9.4-12.3) fL Immature Gran % (Auto) 0.3 (0.0-0.4) % Neut % (Auto) 75.1 H (45-73) % Lymph % (Auto) 14.4 L (20-40) % [place] % (Auto) 9.3 (2-11) % Eos % (Auto) 0.2 (0-4) % Baso % (Auto) 0.7 (0-2) % Lymph # (Auto) 1.5 (1.2-4.9) X10*3/uL [place] # (Auto) 1.0 (0.1-1.2) X10*3/uL Eos # (Auto) 0.0 (0.0-0.4) X10*3/uL Baso # (Auto) 0.1 (0.0-0.2) X10*3/uL Abs Immat Gran (auto) 0.03 (0.00-0.03) X10*3/uL Absolute Neuts (auto) 7.9 (2.0-8.3) X10*3/uL Absolute Nucleated RBC 0.000 (0.0-0.012) X10*3/uL Nucleated RBC % (auto) 0.0 (0.0-0.2) /100WBC PT 21.6 H (10.8-13.0) SEC INR 1.8 H (0.9-1.1) APTT 40.7 H (24.1-38.0) SEC ECG Data Attestation: I personally reviewed and interpreted this ECG as follows: ECG interpretation date: 09/01/20 ECG interpretation time: 20:34 Interpretation: EKG AFib with RVR with a rate 107. No STEMI Discharge Plan Discharge Prescriptions: No Action diltiazem HCl 120 mg capsule,extended release 24hr 120 mg PO DAILY 90 Days Qty: 90 RF: 1 apixaban 2.5 mg tablet 2.5 mg PO BID 90 Days Qty: 180 RF: 1 midodrine 10 mg tablet 10 mg PO TID 90 Days Qty: 270 RF: 1 multivitamin Tablet 1 tab PO DAILY RF: 0 vitamin B complex Tablet 1 tab PO DAILY RF: 0 albuterol sulfate 90 mcg/actuation Hfa Aerosol Inhaler 1 inh INHALATION QID PRN (Reason: Shortness Of Breath) RF: 0 loratadine 10 mg Tablet 10 mg PO DAILY PRN (Reason: Allergy Symptoms) RF: 0 furosemide [Lasix] 40 mg tablet 40 mg PO DAILY 30 Days Qty: 30 RF: 0 potassium chloride 20 mEq tablet extended release 20 meq PO BID 30 Days Qty: 60 RF: 0 spironolactone [Aldactone] 25 mg tablet 12.5 mg PO DAILY 30 Days Qty: 15 RF: 0 [id number]-[id number] 100-62.5-25 mcg blister with device 1 ea inhalation DAILY RF: 0 levothyroxine 25 mcg tablet 25 mcg PO DAILY RF: 0 albuterol sulfate 2.5 mg /3 mL (0.083 %) solution for nebulization 2.5 mg inhalation Q6H PRN (Reason: wheezing) RF: 0 pravastatin 20 mg tablet 10 mg PO BEDTIME RF: 0
[2020-09-01 20:29] LABS: MANUAL DIFF FLAG NO
[2020-09-01 20:30] LABS: Basophils Absolute Auto 0.1 X10*3/uL (0.0-0.2); Basophils Percent Auto 0.7 % (0-2); Eosinophils Percent Auto 0.2 % (0-4); Hematocrit 43.2 % (37-47); Hemoglobin 14.4 g/dl (12.0-16.0); Imm Gran Abs Auto 0.03 X10*3/uL (0.00-0.03); Imm Gran Pct Auto 0.3 % (0.0-0.4); Lymphocytes Absolute Auto 1.5 X10*3/uL (1.2-4.9); Lymphocytes Percent Auto 14.4 % (20-40); Mean Corpuscular HGB Conc 33.3 g/dl (31.0-35.0); Mean Corpuscular Hemoglobin 28.5 pg (27.0-33.0); Mean Corpuscular Volume 85.5 fL (80-98); Mean Platelet Volume 9.1 fL (9.4-12.3); Monocytes Percent Auto 9.3 % (2-11); Neutrophils Absolute Auto 7.9 X10*3/uL (2.0-8.3); Neutrophils Percent Auto 75.1 % (45-73); Platelet Count 253 X10*3/uL (160-400); Red Blood Count 5.05 X10*6/uL (4.20-5.50); Red Cell Distribution Width 17.2 % (11.0-16.0); White Blood Count 10.5 X10*3/uL (4.8-10.8)
[2020-09-01] MEDS: Acetaminophen 325 MG TABLET 650 MG PO (20:35)
[2020-09-01 20:36] LABS: INTERNATIONAL NORM RATIO 1.8 (0.9-1.1); Prothrombin Time 21.6 SEC (10.8-13.0)
[2020-09-01] MEDS: cefEPime HCl 2 GM in 0.9 % Sodium Chloride 50 ML IV (20:36)
[2020-09-01] MEDS: 0.9 % Sodium Chloride 500 ML 999 ML IV (20:38)
[2020-09-01 20:56] LABS: Partial Thromboplastin Time 40.7 SEC (24.1-38.0)
[2020-09-01 20:57] LABS: Lactic Acid 1.5 mmol/L (0.5-2.0)
[2020-09-01] MEDS: Albuterol/Iprat 2.5/0.5MG 3 ML AMPUL.NEB INHALE (21:03)
[2020-09-01 21:04] VITALS: PULSE 94; O2SAT 94
[2020-09-01 21:07] LABS: Alanine Aminotransferase 23 U/L (0-31); Albumin Level 4.7 g/dL (3.5-5.0); Alkaline Phosphatase 142 U/L (39-117); Aspartate Amino Transferase 34 U/L (5-31); Bilirubin Direct 0.7 mg/dL (0.0-0.5); Bilirubin Total 1.4 mg/dL (0.0-1.0); Blood Urea Nitrogen 23 mg/dL (9-16); Calcium 9.6 mg/dL (8.4-10.2); Creatinine Clr Calc Pharmacy 22.8; Estimated Glomerular Filt Rate 43; Glucose Random 106 mg/dL (60-115); Magnesium 1.7 mg/dL (1.6-2.6); Total Protein 7.7 g/dL (6.5-8.0)
[2020-09-01 21:09] LABS: B Type Natriuretic Peptide 1557 pg/mL (<100)
[2020-09-01 21:18] LABS: Anion Gap 21 (12-20); Carbon Dioxide 23 mmol/L (22-29); Chloride 99 mmol/L (96-108); Potassium 2.7 mmol/L (3.3-5.1); Sodium 140 mmol/L (135-145)
[2020-09-01] MEDS: Potassium Chloride ER 20 MEQ TAB.ER.PRT 60 MEQ PO (21:38)
[2020-09-01] MEDS: Furosemide 40 MG/4 ML VIAL IVPUSH (21:40)
[2020-09-01 22:00] VITALS: TEMP 36.9
[2020-09-01 22:05] LABS: Influenza A PCR NEGATIVE (Negative); Influenza B PCR NEGATIVE (Negative); Resp Syncy Virus RNA Qual PCR NEGATIVE (Negative); SARS COV2 PCR INHOUSE NEGATIVE (Negative)
[2020-09-01 22:12] LABS: Glucose Urine UA NEG (NEG); Leukocyte Esterase Urine NEG (NEG); Nitrite Urine NEG (NEG); Specific Gravity - Urine 1.015 (1.005-1.025); Urine Blood TRACE (NEG); Urine Ketones NEG (NEG); Urine Protein 1+ MG/DL (NEG-TRACE)
[2020-09-01 22:30] LABS: Appearance Urine CLEAR; Color Urine YELLOW
[2020-09-01 22:31] LABS: Bacteria Urine 1+ /LPF; Squamous Epithelial Cell Urine 1+ /LPF
[2020-09-01] MEDS: Potassium Chloride Packet 20 MEQ PACKET 40 MEQ PO (23:28)
[2020-09-02] VITALS (10 sets, daily range): BP systolic 99–140; BP diastolic 66–81; PULSE 70–94; RESP 18–21; TEMP 36.3–37; O2SAT 90–100; BMI 16.9
--- NOTE | 2020-09-02 00:01 | PC.NURSE ---
pt a&O, denies any sob or chest pain at this time. medicated per emar. pt is awaiting to be admitted.
[2020-09-02 00:24] LABS: Anion Gap 18 (12-20); Blood Urea Nitrogen 23 mg/dL (9-16); Carbon Dioxide 23 mmol/L (22-29); Chloride 100 mmol/L (96-108); Creatinine Clr Calc Pharmacy 22.2; Estimated Glomerular Filt Rate 41; Glucose Random 123 mg/dL (60-115); Sodium 138 mmol/L (135-145)
--- NOTE | 2020-09-02 00:32 | P.HPHOSP_ITS ---
History of Present Illness Date of Service: 09/02/20 Chief Complaint: SOB 84-year-old female with a past medical history of orthostatic hypotension, CHF, AFib on Eliquis, arthritis, osteoporosis, interstitial lung disease on 3.5 L of home oxygen, history of hypokalemia on potassium supplementation at home presented to the hospital with a chief complaint of shortness of breath. Patient reports that over the past 1 day she has been having shortness of breath associated with dry cough. Denies any chest pain palpitations. Also complains of subjective fevers. Denies any numbness tingling. Denies any recent travel or sick contacts. Mentioned that he she has been complaint with her home medications. Denies any GI or symptoms. Review of all other systems is negative except mentioned above ER course: Per ER team patient noted to be on 4 L of oxygen saturating at 90-94%. Noted to have mild crackles, proBNP elevated- Given Lasix. On last noted to have hypokalemia, no EKG changes, given potassium supplementation. Patient troponin was slightly elevated but denies any chest pain. EKG nonischemic patient also had a fever of 102 F, urinalysis negative, CT negative for any infection, COVID- 19 negative. Patient was given cefepime empirically blood cultures were sent. Admitted for further management.. [facility] Medical History Arthritis Atrial fibrillation CHF (congestive heart failure) Chronic respiratory failure with hypoxia COPD (chronic obstructive pulmonary disease) Orthostatic hypotension dysautonomic syndrome Osteoporosis Social History Household Members: None Housing: House Do you presently have visiting nurse or other home services: Yes (meals on wheels) Alcohol intake: current Alcohol intake frequency: holidays/special occasions only Alcohol type: wine Patient Tobacco Use Status: Former Tobacco user Advance Directives Date on File: 06/14/20 service: No Current occupational status: retired Meds Allergies Allergy/AdvReac Type Severity Reaction Status Date / Time acetaminophen [Percocet] Allergy Unknown vomiting Verified 04/04/20 01:45 morphine [MORPHINE] Allergy Unknown NAUSEA & Verified 04/04/20 01:45 VOMITING, vomiting oxycodone [From PERCODAN] AdvReac Unknown VOMITING Verified 04/04/20 01:45 Percodan Allergy Unknown vomiting Uncoded 11/02/19 00:00 From PERCOCET AdvReac Unknown NAUSEA & Uncoded 12/22/19 14:43 VOMITING Active Medications: Current Medications Generic Name Dose Route Start Last Admin Trade Name Freq PRN Reason Stop Dose Admin Albuterol Sulfate 2.5 mg 09/02/20 00:28 Albuterol Sulfate (0.083%) 2.5 Mg/3 Ml Vial.Neb INHALE Q6H PRN wheezing Albuterol Sulfate 1 puff 09/02/20 00:28 Albuterol Sulfate 90 Mcg 8 Gm Inhaler INHALE QID PRN Shortness Of Breath Apixaban 2.5 mg 09/02/20 09:00 Apixaban 2.5 Mg Tablet PO BID [facility] Diltiazem HCl 120 mg 09/02/20 09:00 Diltiazem Hcl Cd 120 Mg Cap.Er.Deg PO DAILY [facility] Protocol Furosemide 40 mg 09/02/20 09:00 Furosemide 40 Mg Tablet PO DAILY [facility] Protocol Cefepime HCl 1 gm/ Sodium 50 mls @ 100 mls/hr 09/02/20 00:30 Chloride IV Q24H [facility] Ibuprofen 400 mg 09/02/20 00:23 Ibuprofen 400 Mg Tablet PO Q12H PRN Fever or Pain Levothyroxine Sodium 25 mcg 09/02/20 09:00 Levothyroxine Sodium 25 Mcg Tablet PO DAILY [facility] Loratadine 10 mg 09/02/20 00:28 Loratadine 10 Mg Tablet PO DAILY PRN Allergy Symptoms Midodrine 10 mg 09/02/20 09:00 Midodrine Hcl 10 Mg Tablet PO TID [facility] Multivitamins/Vitamin C 1 tab 09/02/20 09:00 Multivitamin Tablet PO DAILY [facility] Pharmacy Consult 1 each 09/01/20 19:55 Consult Rx Perform Med Rec MISCELLANE ONCE PRN Consult order Potassium Chloride 20 meq 09/02/20 00:23 Potassium Chloride Packet 20 Meq Packet PO 09/02/20 00:24 ONCE ONE Pravastatin Sodium 10 mg 09/02/20 21:00 Pravastatin Sodium 10 Mg Tablet PO BEDTIME [facility] Sodium Chloride 3 ml 09/02/20 08:00 0.9 % Sodium Chloride Flush 3 Ml Syringe IVFLUSH QSHIFT [facility] Home Medications Medication Instructions Recorded Confirmed Last Taken Type albuterol sulfate 2.5 mg INHALATION Q6H PRN 06/11/20 09/01/20 Unknown History fluticasone fur. 100 mcg-umeclid 1 ea INHALATION DAILY 06/11/20 09/01/20 Unknown History 62.5 mcg-vilant 25 mcg inhalat.powder levothyroxine 25 mcg tablet 25 mcg PO DAILY 06/11/20 09/01/20 06/13/20 History pravastatin 20 mg tablet 10 mg PO BEDTIME 06/11/20 09/01/20 06/13/20 History albuterol sulfate 1 inh INHALATION QID PRN 06/14/20 09/01/20 Unknown History loratadine 10 mg PO DAILY PRN 06/14/20 09/01/20 Unknown History multivitamin 1 tab PO DAILY 06/14/20 09/01/20 06/13/20 History vitamin B complex 1 tab PO DAILY 06/14/20 09/01/20 06/14/20 History Physical Exam Vital Signs and Narrative: Vital Signs: Last Vital Signs Temp 98.5 F 09/01/20 22:00 Pulse 94 09/01/20 21:04 Resp 17 09/01/20 19:39 BP 153/84 H 09/01/20 19:39 Pulse Ox 93 09/01/20 19:39 Oxygen Flow Rate 4 09/01/20 19:34 Body Mass Index 16.5 Gen: Appears be in no acute distress. No signs of respiratory distress. Speaks in full sentences. Comfortably Lying in the bed HEENT: NCAT, Moist mucosa. Pulmonary: Crackles at bases CVS: Normal S1-S2 Abdomen: BS+, Soft, Nontender Extremities: Warm well perfused Neuro: Alert and awake. Grossly nonfocal Results Labs CBC and Chem 7: 09/02/20 05:20 09/02/20 05:20 Labs: Laboratory Results - last 24 hr 09/01/20 09/01/20 09/01/20 20:20 20:20 20:20 MCV MCH MCHC RDW Plt Count MPV Immature Gran % (Auto) Neut % (Auto) Lymph % (Auto) [place] % (Auto) Eos % (Auto) Baso % (Auto) Lymph # (Auto) [place] # (Auto) Eos # (Auto) Baso # (Auto) Abs Immat Gran (auto) Absolute Neuts (auto) Absolute Nucleated RBC Nucleated RBC % (auto) PT 21.6 H INR 1.8 H APTT Anion Gap 21 H Estim Creat Clear Calc 22.8 Estimated GFR 43 Random Glucose 106 Lactic Acid Calcium 9.6 Magnesium 1.7 Total Bilirubin 1.4 H Direct Bilirubin 0.7 H AST 34 H ALT 23 Alkaline Phosphatase 142 H Troponin I High Sens 77.0 H* B-Natriuretic Peptide 1557 H Total Protein 7.7 Albumin 4.7 Urine Color Urine Appearance Urine pH Ur Specific [place] Urine Protein Urine Glucose (UA) Urine Ketones Urine Blood Urine Nitrite Ur Leukocyte Esterase Urine RBC Urine WBC Ur Squamous Epith Cells Urine Bacteria Coronavirus (PCR) Influenza Type A (PCR) Influenza Type B (PCR) RSV RNA Qual (PCR) 09/01/20 09/01/20 09/01/20 20:20 20:20 20:20 MCV MCH MCHC RDW Plt Count MPV Immature Gran % (Auto) Neut % (Auto) Lymph % (Auto) [place] % (Auto) Eos % (Auto) Baso % (Auto) Lymph # (Auto) [place] # (Auto) Eos # (Auto) Baso # (Auto) Abs Immat Gran (auto) Absolute Neuts (auto) Absolute Nucleated RBC Nucleated RBC % (auto) PT INR APTT 40.7 H Anion Gap Estim Creat Clear Calc Estimated GFR Random Glucose Lactic Acid 1.5 Calcium Magnesium Total Bilirubin Direct Bilirubin AST ALT Alkaline Phosphatase Troponin I High Sens B-Natriuretic Peptide Total Protein Albumin Urine Color Urine Appearance Urine pH Ur Specific [place] Urine Protein Urine Glucose (UA) Urine Ketones Urine Blood Urine Nitrite Ur Leukocyte Esterase Urine RBC Urine WBC Ur Squamous Epith Cells Urine Bacteria Coronavirus (PCR) NEGATIVE Influenza Type A (PCR) NEGATIVE Influenza Type B (PCR) NEGATIVE RSV RNA Qual (PCR) NEGATIVE 09/01/20 09/01/20 09/01/20 20:21 21:58 23:55 MCV 85.5 MCH 28.5 MCHC 33.3 RDW 17.2 H Plt Count 253 MPV 9.1 L Immature Gran % (Auto) 0.3 Neut % (Auto) 75.1 H Lymph % (Auto) 14.4 L [place] % (Auto) 9.3 Eos % (Auto) 0.2 Baso % (Auto) 0.7 Lymph # (Auto) 1.5 [place] # (Auto) 1.0 Eos # (Auto) 0.0 Baso # (Auto) 0.1 Abs Immat Gran (auto) 0.03 Absolute Neuts (auto) 7.9 Absolute Nucleated RBC 0.000 Nucleated RBC % (auto) 0.0 PT INR APTT Anion Gap 18 Estim Creat Clear Calc 22.2 Estimated GFR 41 Random Glucose 123 H Lactic Acid Calcium 9.0 D Magnesium Total Bilirubin Direct Bilirubin AST ALT Alkaline Phosphatase Troponin I High Sens B-Natriuretic Peptide Total Protein Albumin Urine Color YELLOW Urine Appearance CLEAR Urine pH 7.0 Ur Specific [place] 1.015 Urine Protein 1+ H Urine Glucose (UA) NEG Urine Ketones NEG Urine Blood TRACE Urine Nitrite NEG Ur Leukocyte Esterase NEG Urine RBC 1-4 Urine WBC 1-4 Ur Squamous Epith Cells 1+ Urine Bacteria 1+ Coronavirus (PCR) Influenza Type A (PCR) Influenza Type B (PCR) RSV RNA Qual (PCR) Imaging Radiologist's Impressions: Impressions Chest X-Ray 09/01/20 19:55 IMPRESSION: Chronic interstitial lung disease, unchanged. No acute cardiopulmonary findings. Chest CT 09/01/20 20:29 IMPRESSION: 1. Prominent emphysematous changes with diffuse chronic interstitial lung disease, similar when compared to the prior examination. 2. No new pulmonary nodule, mass, or airspace consolidation. 3. Stable, prominent superior mediastinal lymph nodes. Assessment and Plan (1) Fever of unknown origin: Status: Resolved 84-year-old female with a past medical history of orthostatic hypotension, interstitial lung disease on home oxygen, pulmonary hypertension, CHF, AFib on Eliquis presented to the hospital with a chief complaint of fever/shortness of breath. Fever: Unclear source. COVID-[address] chest negative for any pneumonia. Urinalysis negative for infection. Patient abdominal exam was b enign. Denies any GI symptoms. Patient empirically given cefepime. Follow up blood cultures. Id consult. Shortness of breath: Likely CHF. Patient given Lasix in the ER. Daily weights and I's and O's. Monitor on telemetry. Patient had indeterminate troponins. Denies any chest pain. Likely demand ischemia. EKG nonischemic. Follow-up troponin pending. Cardiology consult. Hypokalemia: Repleted. Patient on potassium supplementations at home. Monitor potassium level. Repeat BMP. History of orthostatic hypotension: Patient's vitals are currently stable. Continue home med. History of atrial fibrillation: Continue home diltiazem and Eliquis. DVT prophylaxis: Patient on systemic anticoagulation. Full code
--- NOTE | 2020-09-02 01:08 | PC.NURSE ---
pt a&o, no sign of distress. pt in bed resting. Report given and pt be transferred to unit.
[2020-09-02 01:56] LABS: Troponin-I High Sensitivity 71.2 ng/L (<3.5-17.0)
[2020-09-02] MEDS: Potassium Chloride Packet 20 MEQ PACKET PO (01:57)
[2020-09-02] MEDS: Levothyroxine Sodium 25 MCG TABLET PO (05:36)
[2020-09-02 06:24] LABS: MANUAL DIFF FLAG NO
[2020-09-02 07:11] LABS: Anion Gap 16 (12-20); Blood Urea Nitrogen 25 mg/dL (9-16); Calcium 8.8 mg/dL (8.4-10.2); Carbon Dioxide 23 mmol/L (22-29); Chloride 105 mmol/L (96-108); Creatinine Clr Calc Pharmacy 23.8; Estimated Glomerular Filt Rate 44; Glucose Random 109 mg/dL (60-115); Magnesium 1.8 mg/dL (1.6-2.6); Potassium 4.4 mmol/L (3.3-5.1); Sodium 140 mmol/L (135-145)
[2020-09-02 07:16] LABS: Basophils Absolute Auto 0.1 X10*3/uL (0.0-0.2); Basophils Percent Auto 0.6 % (0-2); Eosinophils Absolute Auto 0.1 X10*3/uL (0.0-0.4); Eosinophils Percent Auto 0.5 % (0-4); Hemoglobin 13.4 g/dl (12.0-16.0); Imm Gran Abs Auto 0.03 X10*3/uL (0.00-0.03); Imm Gran Pct Auto 0.3 % (0.0-0.4); Lymphocytes Absolute Auto 1.5 X10*3/uL (1.2-4.9); Lymphocytes Percent Auto 15.8 % (20-40); Mean Corpuscular HGB Conc 31.9 g/dl (31.0-35.0); Mean Corpuscular Hemoglobin 27.9 pg (27.0-33.0); Mean Corpuscular Volume 87.3 fL (80-98); Monocytes Absolute Auto 1.2 X10*3/uL (0.1-1.2); Monocytes Percent Auto 12.4 % (2-11); Neutrophils Absolute Auto 6.5 X10*3/uL (2.0-8.3); Neutrophils Percent Auto 70.4 % (45-73); Platelet Count 217 X10*3/uL (160-400); Red Blood Count 4.81 X10*6/uL (4.20-5.50); Red Cell Distribution Width 17.6 % (11.0-16.0); White Blood Count 9.3 X10*3/uL (4.8-10.8)
[2020-09-02] MEDS: Midodrine HCl 10 MG TABLET PO ×2 (07:57→14:12)
[2020-09-02] MEDS: Apixaban 2.5 MG TABLET PO ×2 (07:58→20:30)
[2020-09-02] MEDS: 0.9 % Sodium Chloride Flush 3 ML SYRINGE IVFLUSH ×3 (07:58→20:41)
[2020-09-02] MEDS: dilTIAZem HCL CD 120 MG CAP.ER.DEG PO (07:58)
[2020-09-02] MEDS: Furosemide 40 MG TABLET PO (07:58)
[2020-09-02] MEDS: Multivitamin TABLET 1 TAB PO (07:58)
--- NOTE | 2020-09-02 12:12 | P.CONCA_ITS ---
History of Present Illness History of Present Illness Date of Service: 09/02/20 Consult reason: congestive heart failure Chief complaint: Fever Narrative: This is a cardiology consultation regarding congestive heart failure. Patient has a history of chronic atrial fibrillation. She also has a history of diastolic congestive heart failure but she additionally has COPD. Hence her shortness of breath could be from either. Current admission is because of increasing shortness of breath associated with some cough and she had apparently also felt feverish. No anginal-type symptoms. At home, she is on home oxygen. Upon arrival in the ER she was having an O2 sats of 90 94% on 4 L O2; mild crackles and elevated BNP. Thought to have possibly heart failure admitted. However she also had a fever of 102 degrees F. Review of Systems Review of Systems: Yes all other systems are reviewed and are negative Cardiovascular: Cardiovascular: Reports as per HPI, Reports no additional cardiovascular complaints, Denies acrocyanosis, Denies cool extremities, Denies painful fingertips, Denies chest pain, Denies chest pain at rest, Denies diaphoresis, Denies syncope, Denies irregular heart rhythm, Denies claudication, Denies leg edema, Denies lightheadedness, Denies palpitations and Reports dyspnea Respiratory: Respiratory: Reports dyspnea Neurologic: Denies syncope Endocrine: Endocrine: Denies palpitations [facility] Past Medical History Medical History (Updated 09/02/20 @ 12:23 by Teja Dorsey MD) Arthritis Atrial fibrillation CHF (congestive heart failure) Chronic respiratory failure with hypoxia COPD (chronic obstructive pulmonary disease) Orthostatic hypotension dysautonomic syndrome Osteoporosis Social History Social History Household Members: None Housing: House Do you presently have visiting nurse or other home services: Yes (meals on wheels) Alcohol intake: current Alcohol intake frequency: holidays/special occasions only Alcohol type: wine Patient Tobacco Use Status: Former Tobacco user Smoked in Last 30 Days: No Use of substances other than those prescribed or required for medical reasons: No Currently Displaying Signs/Symptoms of Drug Intoxication Withdrawal: No Have you been hit, kicked, punched, or otherwise hurt by someone within the past year? If so, by whom?: No Do you feel safe in your current relationship?: No Current Relationship Is there a partner from a previous relationship who is making you feel unsafe now?: No Are you made to feel afraid or neglected: No Advance Directives: Yes Advance Directives on File: Yes Advance Directives Date on File: 06/14/20 Do you have thoughts of harming others: None Do you have a plan to hurt others: No Plan Recently lost weight without trying: Yes How much weight loss: 2-13 pounds Eating poorly because of decreased appetite: Yes Nutrition screen score: 4 Nutrition Risks: No Nutritional Risk service: No Current occupational status: retired Meds Allergies Allergy/AdvReac Type Severity Reaction Status Date / Time acetaminophen [Percocet] Allergy Unknown vomiting Verified 04/04/20 01:45 morphine [MORPHINE] Allergy Unknown NAUSEA & Verified 04/04/20 01:45 VOMITING, vomiting oxycodone [From PERCODAN] AdvReac Unknown VOMITING Verified 04/04/20 01:45 Percodan Allergy Unknown vomiting Uncoded 11/02/19 00:00 From PERCOCET AdvReac Unknown NAUSEA & Uncoded 12/22/19 14:43 VOMITING Active Medications: Current Medications Generic Name Dose Route Start Last Admin Trade Name Freq PRN Reason Stop Dose Admin Albuterol Sulfate 2.5 mg 09/02/20 00:28 Albuterol Sulfate (0.083%) 2.5 Mg/3 Ml Vial.Neb INHALE Q6H PRN wheezing Albuterol Sulfate 1 puff 09/02/20 00:28 Albuterol Sulfate 90 Mcg 8 Gm Inhaler INHALE QID PRN Shortness Of Breath Apixaban 2.5 mg 09/02/20 09:00 09/02/20 07:58 Apixaban 2.5 Mg Tablet PO 2.5 mg BID [facility] Administration Diltiazem HCl 120 mg 09/02/20 09:00 09/02/20 07:58 Diltiazem Hcl Cd 120 Mg Cap.Er.Deg PO 120 mg DAILY [facility] Administration Protocol Furosemide 40 mg 09/02/20 09:00 09/02/20 07:58 Furosemide 40 Mg Tablet PO 40 mg DAILY [facility] Administration Protocol Cefepime HCl 1 gm/ Sodium 50 mls @ 100 mls/hr 09/02/20 20:00 Chloride IV Q24H [facility] Ibuprofen 400 mg 09/02/20 00:23 Ibuprofen 400 Mg Tablet PO Q12H PRN Fever or Pain Levothyroxine Sodium 25 mcg 09/02/20 06:30 09/02/20 05:36 Levothyroxine Sodium 25 Mcg Tablet PO 25 mcg DAILY@0630 [facility] Administration Loratadine 10 mg 09/02/20 00:28 Loratadine 10 Mg Tablet PO DAILY PRN Allergy Symptoms Midodrine 10 mg 09/02/20 09:00 09/02/20 07:57 Midodrine Hcl 10 Mg Tablet PO 10 mg TID [facility] Administration Multivitamins/Vitamin C 1 tab 09/02/20 09:00 09/02/20 07:58 Multivitamin Tablet PO 1 tab DAILY [facility] Administration Pharmacy Consult 1 each 09/01/20 19:55 Consult Rx Perform Med Rec MISCELLANE ONCE PRN Consult order Pravastatin Sodium 10 mg 09/02/20 21:00 Pravastatin Sodium 10 Mg Tablet PO BEDTIME [facility] Sodium Chloride 3 ml 09/02/20 08:00 09/02/20 07:58 0.9 % Sodium Chloride Flush 3 Ml Syringe IVFLUSH 3 ml QSHIFT [facility] Administration Home Medications Medication Instructions Recorded Confirmed Last Taken Type albuterol sulfate 2.5 mg INHALATION Q6H PRN 06/11/20 09/01/20 Unknown History fluticasone fur. 100 mcg-umeclid 1 ea INHALATION DAILY 06/11/20 09/01/20 Unknown History 62.5 mcg-vilant 25 mcg inhalat.powder levothyroxine 25 mcg tablet 25 mcg PO DAILY 06/11/20 09/01/20 06/13/20 History pravastatin 20 mg tablet 10 mg PO BEDTIME 06/11/20 09/01/20 06/13/20 History albuterol sulfate 1 inh INHALATION QID PRN 06/14/20 09/01/20 Unknown History loratadine 10 mg PO DAILY PRN 06/14/20 09/01/20 Unknown History multivitamin 1 tab PO DAILY 06/14/20 09/01/20 06/13/20 History vitamin B complex 1 tab PO DAILY 06/14/20 09/01/20 06/14/20 History Physical Exam Vital Signs: Vital Signs: Last Vital Signs Temp 97.4 F 09/02/20 11:46 Pulse 86 09/02/20 11:46 Resp 20 09/02/20 11:46 BP 133/78 09/02/20 11:46 Pulse Ox 99 09/02/20 11:46 Oxygen Flow Rate 4 09/01/20 19:34 Body Mass Index 16.9 Const: General: cooperative, comfortable and no acute distress Orientation/consciousness: patient oriented x3 HENMT: Other: Unremarkable Neck: Neck: Yes normal visual inspection Chest: Chest palpation & inspection: normal inspection of the chest Resp: Auscultation: clear to auscultation bilaterally, no crackles and no wheezes Cardio: Jugular venous distension: no JVD Palpation: normal PMI Heart sounds: S1 normal heart sound present, S2 normal heart sound present, no gallops, no murmurs and no rubs GI: Palpation (GI): Soft to palpation Back/Spine/Pelvis: Other: unremarkable Skin: General skin exam: no rashes or lesions noted Neuro: General: patient oriented x3 Extrem: General: Yes no clubbing, cyanosis or edema Psych: Mental Status: mental status grossly normal Results Labs and Meds Result diagrams: 09/02/20 05:20 09/02/20 05:20 Lab results: Laboratory Results - last 24 hr 09/01/20 09/01/20 09/01/20 20:20 20:20 20:20 WBC RBC Hgb Hct MCV MCH MCHC RDW Plt Count MPV Immature Gran % (Auto) Neut % (Auto) Lymph % (Auto) [place] % (Auto) Eos % (Auto) Baso % (Auto) Lymph # (Auto) [place] # (Auto) Eos # (Auto) Baso # (Auto) Abs Immat Gran (auto) Absolute Neuts (auto) Absolute Nucleated RBC Nucleated RBC % (auto) PT 21.6 H INR 1.8 H APTT Sodium 140 Potassium 2.7 L D Chloride 99 Carbon Dioxide 23 Anion Gap 21 H BUN 23 H Creatinine 1.20 Estim Creat Clear Calc 22.8 Estimated GFR 43 Random Glucose 106 Lactic Acid Calcium 9.6 Magnesium 1.7 Total Bilirubin 1.4 H Direct Bilirubin 0.7 H AST 34 H ALT 23 Alkaline Phosphatase 142 H Troponin I High Sens 77.0 H* B-Natriuretic Peptide 1557 H Total Protein 7.7 Albumin 4.7 Urine Color Urine Appearance Urine pH Ur Specific [place] Urine Protein Urine Glucose (UA) Urine Ketones Urine Blood Urine Nitrite Ur Leukocyte Esterase Urine RBC Urine WBC Ur Squamous Epith Cells Urine Bacteria Coronavirus (PCR) Influenza Type A (PCR) Influenza Type B (PCR) RSV RNA Qual (PCR) 09/01/20 09/01/20 09/01/20 20:20 20:20 20:20 WBC RBC Hgb Hct MCV MCH MCHC RDW Plt Count MPV Immature Gran % (Auto) Neut % (Auto) Lymph % (Auto) [place] % (Auto) Eos % (Auto) Baso % (Auto) Lymph # (Auto) [place] # (Auto) Eos # (Auto) Baso # (Auto) Abs Immat Gran (auto) Absolute Neuts (auto) Absolute Nucleated RBC Nucleated RBC % (auto) PT INR APTT 40.7 H Sodium Potassium Chloride Carbon Dioxide Anion Gap BUN Creatinine Estim Creat Clear Calc Estimated GFR Random Glucose Lactic Acid 1.5 Calcium Magnesium Total Bilirubin Direct Bilirubin AST ALT Alkaline Phosphatase Troponin I High Sens B-Natriuretic Peptide Total Protein Albumin Urine Color Urine Appearance Urine pH Ur Specific [place] Urine Protein Urine Glucose (UA) Urine Ketones Urine Blood Urine Nitrite Ur Leukocyte Esterase Urine RBC Urine WBC Ur Squamous Epith Cells Urine Bacteria Coronavirus (PCR) NEGATIVE Influenza Type A (PCR) NEGATIVE Influenza Type B (PCR) NEGATIVE RSV RNA Qual (PCR) NEGATIVE 09/01/20 09/01/20 09/01/20 20:21 21:58 23:55 WBC 10.5 RBC 5.05 Hgb 14.4 Hct 43.2 MCV 85.5 MCH 28.5 MCHC 33.3 RDW 17.2 H Plt Count 253 MPV 9.1 L Immature Gran % (Auto) 0.3 Neut % (Auto) 75.1 H Lymph % (Auto) 14.4 L [place] % (Auto) 9.3 Eos % (Auto) 0.2 Baso % (Auto) 0.7 Lymph # (Auto) 1.5 [place] # (Auto) 1.0 Eos # (Auto) 0.0 Baso # (Auto) 0.1 Abs Immat Gran (auto) 0.03 Absolute Neuts (auto) 7.9 Absolute Nucleated RBC 0.000 Nucleated RBC % (auto) 0.0 PT INR APTT Sodium 138 Potassium 3.0 L Chloride 100 Carbon Dioxide 23 Anion Gap 18 BUN 23 H Creatinine 1.23 Estim Creat Clear Calc 22.2 Estimated GFR 41 Random Glucose 123 H Lactic Acid Calcium 9.0 D Magnesium Total Bilirubin Direct Bilirubin AST ALT Alkaline Phosphatase Troponin I High Sens B-Natriuretic Peptide Total Protein Albumin Urine Color YELLOW Urine Appearance CLEAR Urine pH 7.0 Ur Specific [place] 1.015 Urine Protein 1+ H Urine Glucose (UA) NEG Urine Ketones NEG Urine Blood TRACE Urine Nitrite NEG Ur Leukocyte Esterase NEG Urine RBC 1-4 Urine WBC 1-4 Ur Squamous Epith Cells 1+ Urine Bacteria 1+ Coronavirus (PCR) Influenza Type A (PCR) Influenza Type B (PCR) RSV RNA Qual (PCR) 09/02/20 09/02/20 09/02/20 01:03 05:20 05:20 WBC 9.3 RBC 4.81 Hgb 13.4 Hct 42.0 MCV 87.3 MCH 27.9 MCHC 31.9 RDW 17.6 H Plt Count 217 MPV 11.0 Immature Gran % (Auto) 0.3 Neut % (Auto) 70.4 Lymph % (Auto) 15.8 L [place] % (Auto) 12.4 H Eos % (Auto) 0.5 Baso % (Auto) 0.6 Lymph # (Auto) 1.5 [place] # (Auto) 1.2 Eos # (Auto) 0.1 Baso # (Auto) 0.1 Abs Immat Gran (auto) 0.03 Absolute Neuts (auto) 6.5 Absolute Nucleated RBC 0.000 Nucleated RBC % (auto) 0.0 PT INR APTT Sodium 140 Potassium 4.4 D Chloride 105 Carbon Dioxide 23 Anion Gap 16 BUN 25 H Creatinine 1.18 Estim Creat Clear Calc 23.8 Estimated GFR 44 Random Glucose 109 Lactic Acid Calcium 8.8 Magnesium 1.8 Total Bilirubin Direct Bilirubin AST ALT Alkaline Phosphatase Troponin I High Sens 71.2 H* B-Natriuretic Peptide Total Protein Albumin Urine Color Urine Appearance Urine pH Ur Specific [place] Urine Protein Urine Glucose (UA) Urine Ketones Urine Blood Urine Nitrite Ur Leukocyte Esterase Urine RBC Urine WBC Ur Squamous Epith Cells Urine Bacteria Coronavirus (PCR) Influenza Type A (PCR) Influenza Type B (PCR) RSV RNA Qual (PCR) ECG Attestation: I personally reviewed and interpreted this ECG as follows: Interpretation: EKG shows atrial fibrillation at a rate of 107/Min; inferior and lateral ST depression. PVCs. PVCs are new compared to prior EKG. These could also be aberrant conduction. ST depression also appears different from before. Imaging Radiologist's impression: Impressions Chest X-Ray 09/01/20 19:55 IMPRESSION: Chronic interstitial lung disease, unchanged. No acute cardiopulmonary findings. Chest CT 09/01/20 20:29 IMPRESSION: 1. Prominent emphysematous changes with diffuse chronic interstitial lung disease, similar when compared to the prior examination. 2. No new pulmonary nodule, mass, or airspace consolidation. 3. Stable, prominent superior mediastinal lymph nodes. Assessment and Plan (1) Acute on chronic diastolic (congestive) heart failure: Status: Acute (2) Elevated troponin I level: Status: Acute (3) Persistent atrial fibrillation: Status: Acute (4) Pulmonary hypertension: Status: Acute Last echocardiogram reviewed from 2019. LVEF 60-65% with mild reduction in RV function. There was [id number] mitral and tricuspid regurgitation with severe pulmonary hypertension. Admission reported to have prominent emphysema, diffuse chronic interstitial lung disease and similar to prior.. Cardiac BNP is 1557. Creatinine is 1.18. Hemoglobin 13.4. White cells 9.3. Overall, symptoms more likely from pulmonary reasons and much less likely from heart failure. However she does have elevated BNP which is similar to her previous level. Could have chronic diastolic heart failure with slight decompensation. Pulmonary hypertension may also play some role in elevation of BNP. No need for aggressive diuretics. Otherwise, could consider outpatient ischemia workup based on the ST-T changes. Procedures Date of Service Date of Service: 09/02/20
[2020-09-02] MEDS: Albuterol Sulfate 90 MCG 8 GM INHALER 1 PUFF INHALE (14:19)
[2020-09-02] MEDS: Pravastatin Sodium 10 MG TABLET PO (20:30)
[2020-09-02] MEDS: cefEPime HCl 1 GM in 0.9 % Sodium Chloride 50 ML IV (20:41)
[2020-09-03 03:45] VITALS: BP 127/71; PULSE 82; RESP 18; TEMP 36.5; O2SAT 97
[2020-09-03 06:00] VITALS: BMI 17.2
[2020-09-03] MEDS: Levothyroxine Sodium 25 MCG TABLET PO (06:23)
[2020-09-03 07:35] VITALS: BP 131/75; PULSE 82; RESP 20; TEMP 36.5; O2SAT 93
--- NOTE | 2020-09-03 08:35 | MHC.CM.PN ---
CM MET WITH PT WHO REPORTS SHE LIVES ALONE BUT HER DAUGHTER LIVES NEXT DOOR. PT REPORTS BEING INDEPENDENT WITH CARE BUT STATES HER DAUGHTER IS THERE TO ASSIST PRN. PT REPORTS SHE HAS HOME OXYGEN, A NEBULIZER, AND USES A ROLLATOR. PT HAS A HCP ON FILE AND CONFIRMS HER PCP IS ANDREA PERKINS. IMM DELIVERED CURRENT DC PLAN IS HOME WITH NO SERVICES PT REPORTS HER DAUGHTER WILL DRIVE HER HOME AT DC AND SHE DOES HAVE A PORTABLE OXYGEN TANK FOR THE TRIP.
[2020-09-03] MEDS: Apixaban 2.5 MG TABLET PO (09:34)
[2020-09-03] MEDS: 0.9 % Sodium Chloride Flush 3 ML SYRINGE IVFLUSH (09:34)
[2020-09-03] MEDS: Multivitamin TABLET 1 TAB PO (09:34)
[2020-09-03] MEDS: Furosemide 40 MG TABLET PO (09:35)
[2020-09-03 09:36] VITALS: BP 131/75; PULSE 82
[2020-09-03] MEDS: dilTIAZem HCL CD 120 MG CAP.ER.DEG PO (09:36)
[2020-09-03] MEDS: Midodrine HCl 10 MG TABLET PO (09:36)
[2020-09-03] MEDS: Albuterol Sulfate 90 MCG 8 GM INHALER 1 PUFF INHALE (09:44)
[2020-09-03 11:25] VITALS: BP 125/65; PULSE 81; RESP 22; TEMP 36.8; O2SAT 99
--- NOTE | 2020-09-03 12:39 | PM.DS ---
DS: Providers Provider Date of Service: 09/03/20 Date of admission: 09/02/20 00:23 Primary care physician: Michael Godinez MD Consults: 09/02/20 00:23 Consult to Cardiology Routine Consulting Provider: Teja Dorsey Reason for consultation: chf 09/02/20 00:30 Consult to Infectious Diseases Routine Consulting Provider: Di Segal Reason for consultation: fever; unclear source DS: Diagnosis Discharge Diagnosis (1) Acute on chronic diastolic (congestive) heart failure: Status: Acute (2) Elevated troponin I level: Status: Acute (3) Persistent atrial fibrillation: Status: Acute (4) Pulmonary hypertension: Status: Acute DS: Medications Discharge Medications Home Medications: Home Medications Medication Instructions Recorded Confirmed albuterol sulfate 2.5 mg INHALATION Q6H PRN 06/11/20 09/01/20 fluticasone fur. 100 mcg-umeclid 1 ea INHALATION DAILY 06/11/20 09/01/20 62.5 mcg-vilant 25 mcg inhalat.powder levothyroxine 25 mcg tablet 25 mcg PO DAILY 06/11/20 09/01/20 pravastatin 20 mg tablet 10 mg PO BEDTIME 06/11/20 09/01/20 albuterol sulfate 1 inh INHALATION QID PRN 06/14/20 09/01/20 loratadine 10 mg PO DAILY PRN 06/14/20 09/01/20 multivitamin 1 tab PO DAILY 06/14/20 09/01/20 vitamin B complex 1 tab PO DAILY 06/14/20 09/01/20 Previous Rx's Medication Instructions Recorded diltiazem HCl 120 mg 120 mg PO DAILY 90 Days #90 cap 03/20/20 capsule,extended release 24 hr furosemide [Lasix] 40 mg PO DAILY 30 Days #30 tab 06/16/20 potassium chloride 20 meq PO BID 30 Days #60 tab 06/16/20 apixaban 2.5 mg tablet 2.5 mg PO BID 90 Days #180 tab 07/25/20 midodrine 10 mg tablet 10 mg PO TID 90 Days #270 tab 08/09/20 doxycycline hyclate 100 mg PO DAILY #10 cap 09/03/20 DS: Summary Hospital Course Hospital Course: Patient presented to hospital complanining of feeling tired, sob and had fever. She had completed vaccine for covid weeks ago. She had temperature of 100.6. CXR and CT of chest showed no pneumonia, clinically there was no evidence of heart failure. He was started on empirically on Cefepime, WBC was normal. She was seen by cardiology with no furhter recommendation for work up. During hospitalization, she has not had further fever and no sob, she will be treated for likely bronchitis as cause of fever and will be discharged with PO doxy, and to continue home O2 Time Spent with Patient Time attestation: Total time spent providing and/or coordinating discharge services: Discharge coordination time: Greater than 30 minutes Quality: Stroke Does the patient have a stroke diagnosis?: No Physical Exam Vital Signs: Vital Signs: Last Vital Signs Temp 98.2 F 09/03/20 11:25 Pulse 81 09/03/20 11:25 Resp 22 H 09/03/20 11:25 BP 125/65 09/03/20 11:25 Pulse Ox 99 09/03/20 11:25 Oxygen Flow Rate 4 09/01/20 19:34 Body Mass Index 17.2 Const: Other: General: AO X 3, no acute distress Resp: CTA bilateral CVS: S1,S2,RRR GI: +BS, NT, no distention Skin: No rash Neuro: motor grossly intact Psych: appropriate affect DS: Data Data Completed and Pending Labs on day of discharge: Preliminary micro results at discharge 09/01/20 20:26 Blood Culture - Preliminary Blood - Venous No growth after 24 hours. 09/01/20 20:20 Blood Culture - Preliminary Blood - Venous No growth after 24 hours. Discharge Plan Discharge Anticipated Discharge Date/Time: 09/03/20 12:20 Patient Disposition: Home Health Service Discharge Diagnosis: Bronchitis, COPD Referrals: Michael Godinez MD [Primary Care Provider] - 1 Week Discharge Medications: New doxycycline hyclate 100 mg capsule 100 mg PO DAILY Qty: 10 RF: 0 Continued diltiazem HCl 120 mg capsule,extended release 24hr 120 mg PO DAILY 90 Days Qty: 90 RF: 1 apixaban 2.5 mg tablet 2.5 mg PO BID 90 Days Qty: 180 RF: 1 midodrine 10 mg tablet 10 mg PO TID 90 Days Qty: 270 RF: 1 multivitamin Tablet 1 tab PO DAILY RF: 0 vitamin B complex Tablet 1 tab PO DAILY RF: 0 albuterol sulfate 90 mcg/actuation Hfa Aerosol Inhaler 1 inh INHALATION QID PRN (Reason: Shortness Of Breath) RF: 0 loratadine 10 mg Tablet 10 mg PO DAILY PRN (Reason: Allergy Symptoms) RF: 0 furosemide [Lasix] 40 mg tablet 40 mg PO DAILY 30 Days Qty: 30 RF: 0 potassium chloride 20 mEq tablet extended release 20 meq PO BID 30 Days Qty: 60 RF: 0 gpiroqmzigp-xqszicayc-kxfbmken 100-62.5-25 mcg blister with device 1 ea inhalation DAILY RF: 0 levothyroxine 25 mcg tablet 25 mcg PO DAILY RF: 0 albuterol sulfate 2.5 mg /3 mL (0.083 %) solution for nebulization 2.5 mg inhalation Q6H PRN (Reason: wheezing) RF: 0 pravastatin 20 mg tablet 10 mg PO BEDTIME RF: 0 Discharge Orders: Discharge Order (Routine); Ordered 09/03/20 Ordered By: Honorio Patrick Diet: advance to usual diet Activity on Discharge: As tolerated Stand Alone Forms: Patient Portal Discharge page Care Plan Goals: prevent rehospitalization and control of symptoms of of copd Health Concerns: chronic respiratory failure due to copd and acute bronchitis Plan of Treatment: Take Doxycyline as recommended and continue using your inhaler and follow up with your Doctor in a week Assessment: See above
--- NOTE | 2020-09-03 13:51 | W.PM.IDCN ---
History of Present Illness Data of Consult Service Date: 09/03/20 Requesting physician: Honorio Guzman Primary Care Provider: Michael Godinez MD [facility] Reason for consult: fever of unknown origin She presents to hospital with shortness of breath and cough She had temperature of 100.2 CXR,blood cultures and urine culture negative CT chest no acute changes She had been hospitalized two months ago, has atrial fibrillation Review of Systems Review of Systems: Yes all other systems are reviewed and are negative [facility] Past Medical History Medical History Arthritis Atrial fibrillation CHF (congestive heart failure) Chronic respiratory failure with hypoxia COPD (chronic obstructive pulmonary disease) Orthostatic hypotension dysautonomic syndrome Osteoporosis Family History Family history: reviewed and not pertinent Social History Social History Household Members: None Housing: House Do you presently have visiting nurse or other home services: Yes (meals on wheels) Alcohol intake: current Alcohol intake frequency: holidays/special occasions only Alcohol type: wine Patient Tobacco Use Status: Former Tobacco user Smoked in Last 30 Days: No Use of substances other than those prescribed or required for medical reasons: No Currently Displaying Signs/Symptoms of Drug Intoxication Withdrawal: No Have you been hit, kicked, punched, or otherwise hurt by someone within the past year? If so, by whom?: No Do you feel safe in your current relationship?: No Current Relationship Is there a partner from a previous relationship who is making you feel unsafe now?: No Are you made to feel afraid or neglected: No Advance Directives: Yes Advance Directives on File: Yes Advance Directives Date on File: 06/14/20 Do you have thoughts of harming others: None Do you have a plan to hurt others: No Plan Recently lost weight without trying: Yes How much weight loss: 2-13 pounds Eating poorly because of decreased appetite: Yes Nutrition screen score: 4 Nutrition Risks: No Nutritional Risk service: No Current occupational status: retired Meds Allergies Allergy/AdvReac Type Severity Reaction Status Date / Time acetaminophen [Percocet] Allergy Unknown vomiting Verified 04/04/20 01:45 morphine [MORPHINE] Allergy Unknown NAUSEA & Verified 04/04/20 01:45 VOMITING, vomiting oxycodone [From PERCODAN] AdvReac Unknown VOMITING Verified 04/04/20 01:45 Percodan Allergy Unknown vomiting Uncoded 11/02/19 00:00 From PERCOCET AdvReac Unknown NAUSEA & Uncoded 12/22/19 14:43 VOMITING Active Medications: Current Medications Generic Name Dose Route Start Last Admin Trade Name Freq PRN Reason Stop Dose Admin Albuterol Sulfate 2.5 mg 09/02/20 00:28 Albuterol Sulfate (0.083%) 2.5 Mg/3 Ml Vial.Neb INHALE Q6H PRN wheezing Albuterol Sulfate 1 puff 09/02/20 00:28 09/03/20 09:44 Albuterol Sulfate 90 Mcg 8 Gm Inhaler INHALE 1 puff QID PRN Administration Shortness Of Breath Apixaban 2.5 mg 09/02/20 09:00 09/03/20 09:34 Apixaban 2.5 Mg Tablet PO 2.5 mg BID TAMMY Administration Diltiazem HCl 120 mg 09/02/20 09:00 09/03/20 09:36 Diltiazem Hcl Cd 120 Mg Cap.Er.Deg PO 120 mg DAILY TAMMY Administration Protocol Furosemide 40 mg 09/02/20 09:00 09/03/20 09:35 Furosemide 40 Mg Tablet PO 40 mg DAILY TAMMY Administration Protocol Cefepime HCl 1 gm/ Sodium 50 mls @ 100 mls/hr 09/02/20 20:00 09/02/20 21:18 Chloride IV Infused Q24H TAMMY Infusion Ibuprofen 400 mg 09/02/20 00:23 Ibuprofen 400 Mg Tablet PO Q12H PRN Fever or Pain Levothyroxine Sodium 25 mcg 09/02/20 06:30 09/03/20 06:23 Levothyroxine Sodium 25 Mcg Tablet PO 25 mcg DAILY@0630 TAMMY Administration Loratadine 10 mg 09/02/20 00:28 Loratadine 10 Mg Tablet PO DAILY PRN Allergy Symptoms Midodrine 10 mg 09/02/20 09:00 09/03/20 09:36 Midodrine Hcl 10 Mg Tablet PO 10 mg TID TAMMY Administration Multivitamins/Vitamin C 1 tab 09/02/20 09:00 09/03/20 09:34 Multivitamin Tablet PO 1 tab DAILY TAMMY Administration Pharmacy Consult 1 each 09/01/20 19:55 Consult Rx Perform Med Rec MISCELLANE ONCE PRN Consult order Pravastatin Sodium 10 mg 09/02/20 21:00 09/02/20 20:30 Pravastatin Sodium 10 Mg Tablet PO 10 mg BEDTIME TAMMY Administration Sodium Chloride 3 ml 09/02/20 08:00 09/03/20 09:34 0.9 % Sodium Chloride Flush 3 Ml Syringe IVFLUSH 3 ml QSHIFT TAMMY Administration Home Medications Medication Instructions Recorded Confirmed Last Taken Type albuterol sulfate 2.5 mg INHALATION Q6H PRN 06/11/20 09/01/20 Unknown History fluticasone fur. 100 mcg-umeclid 1 ea INHALATION DAILY 06/11/20 09/01/20 Unknown History 62.5 mcg-vilant 25 mcg inhalat.powder levothyroxine 25 mcg tablet 25 mcg PO DAILY 06/11/20 09/01/20 06/13/20 History pravastatin 20 mg tablet 10 mg PO BEDTIME 06/11/20 09/01/20 06/13/20 History albuterol sulfate 1 inh INHALATION QID PRN 06/14/20 09/01/20 Unknown History loratadine 10 mg PO DAILY PRN 06/14/20 09/01/20 Unknown History multivitamin 1 tab PO DAILY 06/14/20 09/01/20 06/13/20 History vitamin B complex 1 tab PO DAILY 06/14/20 09/01/20 06/14/20 History Physical Exam Vital Signs: Vital Signs: Last Vital Signs Temp 98.2 F 09/03/20 11:25 Pulse 81 09/03/20 11:25 Resp 22 H 09/03/20 11:25 BP 125/65 09/03/20 11:25 Pulse Ox 99 09/03/20 11:25 Oxygen Flow Rate 4 09/01/20 19:34 Body Mass Index 17.2 Const: General: cooperative Orientation/consciousness: patient oriented x3 HENMT: Head: Yes normal to inspection Throat: Yes posterior oropharynx normal Resp: Effort & Inspection: normal respiratory effort and able to speak in complete sentences Cardio: Rate: regular rate Rhythm: regular rhythm GI: Palpation (GI): Soft to palpation and nontender Skin: General skin exam: no rashes or lesions noted Neuro: General: patient oriented x3 Extrem: General: Yes normal to inspection Results Labs CBC & Chem 7: 09/02/20 05:20 09/02/20 05:20 Microbiology Microbiology Results: Microbiology 09/01/20 20:26 Blood - Venous Blood Culture - Preliminary No growth after 24 hours. 09/01/20 20:20 Blood - Venous Blood Culture - Preliminary No growth after 24 hours. Assessment and Plan (1) Fever of unknown origin: Status: Acute She has possible viral bronchitis as fever cause She feels better now and doesnt have increase in baseline oxygen demands She is on home oxygen Suggest Po Doxycycline for 7 days Consider check RVP panel Consider check Legionella
== END 2020-09-03 14:00 | disposition home health service (06) | DRG 202 ==
LOC: HO.ED 23:03 → HO.IMC 09-02 00:42
PROVIDERS: Physician Assistant; Admitting Provider Hospitalist; Emergency Provider Internal Medicine; PCP Internal Medicine; Visit Provider Internal Medicine
DX: J20.9 Acute bronchitis, unspecified (principal); I48.19 Other persistent atrial fibrillation; J44.0 Chronic obstructive pulmonary disease with (acute) lower respiratory infection; I50.32 Chronic diastolic (congestive) heart failure; I95.1 Orthostatic hypotension; I27.20 Pulmonary hypertension, unspecified; Z20.822 Contact with and (suspected) exposure to COVID-19; Z99.81 Dependence on supplemental oxygen; Z87.891 Personal history of nicotine dependence; Z88.5 Allergy status to narcotic agent; Z79.01 Long term (current) use of anticoagulants; Z79.51 Long term (current) use of inhaled steroids; Z79.890 Hormone replacement therapy; Z79.899 Other long term (current) drug therapy
CPT/HCPCS: 0241U; 36415; 71045; 71250; 80048; 80076; 81001; 83605; 83735; 83880; 84484; 85025; 85610; 85730; 87040; 93005; 94640; 96365; 96368; 96375; 99285; J0692; J1940

== ENCOUNTER → 2020-09-20 15:00 | Outpatient (BNVA) | payer MEDICARE, SELFPAY | PROVIDERS: PCP Internal Medicine; Visit Provider Internal Medicine Cardiovascular Disease | DX: I50.9 Heart failure, unspecified (principal); I48.91 Unspecified atrial fibrillation; G90.3 Multi-system degeneration of the autonomic nervous system | CPT/HCPCS: 99212 ==